=== PATIENT | male | born 1960 | race Caucasian/White ===

== ENCOUNTER → 2016-11-12 11:09 | Outpatient (CLI) | payer MEDICARE ==
[2016-07-12 10:15] VITALS: BMI 33.2
[~2016-11-12 11:09] MED LIST: ACIDOPHILUS LAC1 CAP PO; APAP325 MG PO; ASPIRIN325 MG PO; AUGMENTIN 875-11 TAB PO; B&O SUPP1 SUPP.REC RC; BACLOFEN10 MG PO; BACLOFEN20 M1 PO; BACTROBAN NASAL1 GM TOPICAL; BANOPHEN25 MG PO; BYSTOLIC10 MG PO; COLACE100 MG PO; CRESTOR5 MG PO; DENAVIR1.5 GM TOPICAL; DIFLUCAN100 MG PO; DILAUDID INJ2 MG/ML IV; DULCOLAX10 MG/SUPP RC; DURAGESIC1 PATCH .1 TRANSDERM; FLORASTOR PO; HYDROCODON-ACE1 EAC7 PO; IPRAT-ALBUT 0.5-3 ML UPD; K-TAB10 MEQ PO; LABETALOL HCL5 MG/M1 IV; LEVAQUIN250 MG PO; LIDODERM 5 %1 PATCH TD; LIPITOR20 MG PO; LISINOPRIL5 MG PO; LOVENOX40 MG/0.4 SQ; LOW DOSE ASPIRI81 M1 PO; LYRICA200 MG PO; MAG-OX 400 MG400 MG PO; MILK OF MAGNESI30 ML PO; MIRALAX17 GM PO; NYSTATIN1 PWD TOPICAL; ONDANSETRON4 MG/2 M3 IV; OXYMORPHONE HCL30 MG PO; POTASSIUM20 MEQ/11 PO; PROTONIX40 MG PO; PROZAC10 MG PO; PULMICORT0.5 MG/21 INH; ROCEPHIN 1 GM IN1 GM IM; SENOKOT-S TABLE1 TAB PO; SODIUM CL 0.91000 ML IV; SPIRIVA18 MCG INH; ULTRACET TABLET1 TAB PO; VALIUM10 MG PO; VIAGRA100 MG PO; VITAMIN D5000 UNIT; ZOFRAN4 MG PO
[2016-11-12 11:47] LABS: ALBUMIN 3.6 g/dL (3.4-5.0); ALKALINE PHOSPHATASE 90 U/L (46-116); ALT (SGPT) 56 U/L (10-68); BILIRUBIN - TOTAL 0.31 mg/dL (0.2-1.3); CALC OSMOLALITY 272 mosm/kg (275-300); CALCIUM 8.6 mg/dL (8.5-10.1); CARBON DIOXIDE 26.8 mmol/L (21.0-32.0); CHLORIDE - SERUM 100 mmol/L (98-107); CREATININE - SERUM 0.8 mg/dL (0.6-1.3); GLUCOSE 113 mg/dL (74-106); POTASSIUM - SERUM 4.5 mmol/L (3.5-5.1); PROTEIN - SERUM 7.2 g/dL (6.4-8.2); SODIUM 136 mmol/L (136-145); UREA NITROGEN 13 mg/dL (7-18); eGFR NON AFRICAN AMERICAN > 90 mL/min (90-120)
== END | disposition home or self-care (01) ==
LOC: D.LABREF 11:09
PROVIDERS: Family Medicine
DX: R09.89 Other specified symptoms and signs involving the circulatory and respiratory systems (principal); R05 Cough; R50.9 Fever, unspecified

== ENCOUNTER 2017-07-01 21:53 | Inpatient (IN) | payer MEDICARE ==
[~2017-07-01] VITALS: Ht 188 cm; Wt 131.8 kg
[~2017-07-01 21:53] MED LIST changes: +LIPITOR10 MG PO; -LIPITOR20 MG PO; +PROTONIX20 MG PO; -PROTONIX40 MG PO; -PROZAC10 MG PO; +PROZAC20 MG PO; +VITAMIN D250000 UNIT PO; -VITAMIN D5000 UNIT
[2017-07-01 22:37] LABS: BASOPHILS 0.1 % (0-2); EOSINOPHILS 0.6 % (0-7); HEMATOCRIT 43.9 % (42.0-54.0); HEMOGLOBIN 13.4 g/dL (13.5-17.5); IMMATURE GRANULOCYTES 0.2 % (0-5); LYMPHOCYTES 7.9 % (15-50); MCH 22.7 pg (26.0-34.0); MCHC 30.5 g/dL (31.0-37.0); MCV 74.4 fL (80.0-100.0); MEAN PLATELET VOLUME 9.6 fL (7.4-10.4); MONOCYTES 8.1 % (2-11); NEUTROPHILS 83.1 % (40-80); RDW 17.3 % (11.5-14.5); WBC 8.7 10x3/uL (4.8-10.8)
[2017-07-01 22:41] LABS: PLATELET COUNT 194 10x3/uL (130-400)
[2017-07-01 22:57] LABS: CREATININE - SERUM 0.9 mg/dL (0.6-1.3); eGFR NON AFRICAN AMERICAN > 90 mL/min (90-120)
[2017-07-01 23:15] LABS: ALBUMIN 3.4 g/dL (3.4-5.0); ALKALINE PHOSPHATASE 119 U/L (46-116); ALT (SGPT) 48 U/L (10-68); BILIRUBIN - TOTAL 0.37 mg/dL (0.2-1.3); CARBON DIOXIDE 24.8 mmol/L (21.0-32.0); CHLORIDE - SERUM 99 mmol/L (98-107); POTASSIUM - SERUM 4.6 mmol/L (3.5-5.1); PROTEIN - SERUM 7.5 g/dL (6.4-8.2); SODIUM 133 mmol/L (136-145)
[2017-07-01 23:27] LABS: CALC OSMOLALITY 271 mosm/kg (275-300); CALCIUM 8.7 mg/dL (8.5-10.1); GLUCOSE 169 mg/dL (74-106); UREA NITROGEN 19 mg/dL (7-18)
[2017-07-01 23:33] LABS: APPEARANCE CLEAR (CLEAR); BILIRUBIN NEGATIVE (NEGATIVE); COLOR DK YELLOW (YELLOW); GLUCOSE NEGATIVE (NEGATIVE); KETONE NEGATIVE (NEGATIVE); NITRITE NEGATIVE (NEGATIVE); PROTEIN TRACE mg/dL (NEGATIVE); UROBILINOGEN NORMAL (NORMAL)
[2017-07-01 23:35] LABS: BACTERIA FEW /hpf (NONE SEEN); EPITHELIAL CELLS 0-5 /hpf (0-5); MUCUS <1+ /lpf (NONE SEEN); RED CELLS - URINE NONE SEEN /hpf (0-5); SPERMATOZOA PRESENT /hpf (NONE SEEN); WHITE CELLS - URINE 0-5 /hpf (0-5)
--- NOTE | 2017-07-01 23:56 | NUR ---
REPORT RECEIVED FROM DONNELL FERRELL IN ER
[2017-07-02 00:59] VITALS: BP 111/55; Ht 188 cm; Wt 131.8 kg
[2017-07-02] MEDS ORDERED: CYCLOBENZAPRINE5 MG PO (04:39)
[2017-07-02] MEDS ORDERED: LYRICA200 MG PO (04:40)
[2017-07-02] MEDS ORDERED: REQUIP0.5 MG PO (04:40)
[2017-07-02] MEDS ORDERED: VALIUM5 MG PO (04:41)
[2017-07-02] MEDS ORDERED: IMODIUM2 MG PO (04:43)
[2017-07-02] MEDS ORDERED: MELATONIN 3 MG1 TAB PO (04:44)
--- NOTE | 2017-07-02 04:48 | NUR ---
PT RECEIVED FROM ER VIA STRETCHER @ 00:30 AWAKE, ALERT, ORIENTED, WITH HIS DAUGHTER AND SON-IN-LAW AT BEDSIDE. PTS DAUGHTER IS PETE JACOME, AN VICE PRESIDENT [employer] WHO HAS PREVIOUSLY WORKED HERE ON THIS UNIT. MRS. JACOME EXPRESSED GREAT CONCERN ABOUT AN ORDERED MEDICATION PT RECEIVED IN THE ER BEFORE BEING ADMITTED TO THE FLOOR. MRS. JACOME STATES THAT PTS NURSE IN THE ER, DONNELL, ADMINISTERED PT AN IV PUSH OF CEFTRIAXONE DILUTED WITH LIDOCAINE, CAUSING PT PAIN AND DISCOMFORT TO HIS IV SITE AND ARM, THEN INFILTRATING. DONNELL DID REPORT TO ME THAT HIS IV DID IN FACT INFILTRATE AFTER THE ADMINISTRATION OF ROCEPHIN, HOWEVER SHE DID NOT STATE TO ME THAT SHE ADMINISTERED THE CEFTRIAXONE (ROCEPHIN) IV PUSH. MRS. JACOME STATES SHE ALSO DISCUSSED HER CONCERNS WITH RADU OBRIEN RN, ALSO IN THE ER. I HAVE NOTIFIED CORPORATE SAFETY MANAGER, EL HALL, WHO ALSO STATED TO LET RADU OBRIEN KNOW, IN WHICH I STATED THAT MRS. JACOME HAD ALREADY DONE SO. I PLACED PT ON TELEMETRY AND HAVE CONTINUED TO MONITOR PT CLOSELY SINCE HIS ADMISSION. PT IS CURRENTLY RESTING COMFORTABLY, HOWEVER, PT DOES DEMONSTRATE MODERATE APNEA DURING HIS SLEEP. PT IS EASILY ROUSABLE TO VERBAL STIMULI, AND CURRENTLY DENIES ANY NEEDS. WILL CONTINUE TO MONITOR PT CLOSELY AND FREQUENTLY. BED LOW, CALL LIGHT IN REACH, SIDE RAILS X 2, HOB 35 DEGREES.
--- NOTE | 2017-07-02 05:31 | NUR ---
EL HALL, ARCHIVIST MILITARY HISTORY, DID CHECK THE ER PYXIS AND CONFIRMS THE DILUENT USED FOR THE IV PUSH ROCEPHIN WAS STERILE WATER AND NOT LIDOCAINE.
[2017-07-02 08:00] VITALS: BP 117/73
--- NOTE | 2017-07-02 10:21 | NUR ---
ASSESSMENT COMPLETED.PT IS HAVING PERIODS OF APNEA. 02 AT 4 L/M PER NC.HARD TO WAKE UP THEN GOES RIGHT BACK TO SLEEP. MEDS HELD DUE TO BREATHING AND BP. TELEMERTY SHOWS ST 105. PT IS BED BOUND. WILL MONITOR. NO NEEDS NOTED SR UP WITH CALL LIGHT IN REACH
--- NOTE | 2017-07-02 10:59 | NUR ---
AROUSES TO VERBAL STIMULI BUT GOES BACK TO SLEEP WITH SNORING RESP PT ANSWERS APPROPRIATELY APPEARS TO BE ORIENTED TO SELF AND PLACE O2 ON PER ORDER WILL CONTINUE TO MONITOR
[2017-07-02 12:00] VITALS: BP 144/78
[2017-07-02 16:00] VITALS: BP 107/70
--- NOTE | 2017-07-02 18:59 | NUR ---
LYING QUIETLY. DENIES ANY NEEDS, CALL LIGHT IN REACH
--- NOTE | 2017-07-02 20:18 | NUR ---
PT AWAKE, ALERT, ORIENTED, LYING IN BED RECEIVING A RESP TX AT THIS TIME. PT IS ASKING FOR HIS PRN VALIUM, DENIES ANY OTHER NEEDS. CONTINUE TO MONITOR CLOSELY. BED LOW, CALL LIGHT IN REACH, SIDE RAILS X 2, HOB 30 DEGREES.
[2017-07-02 21:24] VITALS: BP 129/65
[2017-07-03 01:40] VITALS: BP 109/63
--- NOTE | 2017-07-03 03:27 | NUR ---
PT HAS CALLED TWICE ASKING FOR VALIUM R/T INCREASED TREMORS/JERKING IN HIS BLE'S. I HAVE EXPLAINED TO PT THAT HIS VALIUM IS SCHEDULED AND NOT PRN. I HAVE PAGED DR. TRAN FOR FURTHER ORDERS, THESE TREMORS ARE MODERATE TO SEVERE AT TIMES AND PAINFUL. CONTINUE TO MONITOR CLOSELY.
[2017-07-03 04:00] VITALS: BP 152/126
--- NOTE | 2017-07-03 04:31 | NUR ---
DR. TRAN RETURNED CALL IMMEDIATELY AND GAVE A VERBAL ORDER TO CHANGE PTS VALIUM FROM 1MG PO TID TO 5MG PO TID. NEW DOSE ADMINISTERED TO PT IMMEDIATELY. NO OTHER NEEDS. CONTINUE TO MONITOR PT CLOSELY.
[2017-07-03 06:51] LABS: BASOPHILS 0.2 % (0-2); EOSINOPHILS 0 % (0-7); HEMATOCRIT 38.7 % (42.0-54.0); HEMOGLOBIN 11.9 g/dL (13.5-17.5); IMMATURE GRANULOCYTES 0.5 % (0-5); LYMPHOCYTES 14.4 % (15-50); MCH 22.7 pg (26.0-34.0); MCHC 30.7 g/dL (31.0-37.0); MCV 73.7 fL (80.0-100.0); MEAN PLATELET VOLUME 9.2 fL (7.4-10.4); MONOCYTES 7.5 % (2-11); NEUTROPHILS 77.4 % (40-80); PLATELET COUNT 211 10x3/uL (130-400); RBC 5.25 10x6/uL (4.20-6.10); RDW 17.1 % (11.5-14.5)
[2017-07-03 07:02] LABS: CALC OSMOLALITY 273 mosm/kg (275-300); CALCIUM 8.7 mg/dL (8.5-10.1); CARBON DIOXIDE 27.2 mmol/L (21.0-32.0); CHLORIDE - SERUM 98 mmol/L (98-107); CREATININE - SERUM 0.8 mg/dL (0.6-1.3); GLUCOSE 132 mg/dL (74-106); POTASSIUM - SERUM 4.4 mmol/L (3.5-5.1); SODIUM 136 mmol/L (136-145); UREA NITROGEN 12 mg/dL (7-18); eGFR NON AFRICAN AMERICAN > 90 mL/min (90-120)
[2017-07-03 07:19] LABS: WBC 6.1 10x3/uL (4.8-10.8)
--- NOTE | 2017-07-03 07:30 | NUR ---
ASSESSMENT COMPLETED. TELEMERTY SHOWS ST 121. 02 AT 4 L/M PER NC. RIGHT FOREARM IV WITN NS AT KVO. PT IS A PARAPLEGIC.NO COMPLAINTS VOICED. SR UP WITH CALL LIGHT IN REACH. WILL MONITOR
[2017-07-03 08:41] VITALS: BP 151/74
--- NOTE | 2017-07-03 09:56 | NUR ---
RESTING QUIETLY RESP UNLABORED NAD NOTED
[2017-07-03 12:00] VITALS: BP 122/74
[2017-07-03 16:00] VITALS: BP 130/63
[2017-07-03 21:05] VITALS: BP 116/71
[2017-07-04] VITALS (7 sets, daily range): BP systolic 111–147; BP diastolic 68–82
--- NOTE | 2017-07-04 04:51 | NUR ---
PT RESTING QUIETLY, EYES CLOSED. RESP DEEP, EASY. NO DISTRESS NOTED. WILL CONTINUE TO MONITOR.
--- NOTE | 2017-07-04 08:45 | NUR ---
MORNING MEDICATIONS GIVEN. PT SITTING UP IN BED RESTING QUIETLY AND EATING BREAKFAST. PT STATES HE SLEPT WELL AND IS DOING "ALRIGHT" PT C/O R.LEG PAIN REQUESTED AND PROVIDED WITH PRN PAIN MEDICATION. RR NONLABORED WITH NC @4L WILL TRY TO TAPER HIM DOWN OFF OXYGEN HE STATES HE NORMALLY DOESNT REQUIRE IT. PT DENIES ANY CURRENT NEEDS AT THIS TIME. CL IN REACH, BED IN LOWEST, SIDE RAILS X2, WILL CPOC.
--- NOTE | 2017-07-04 11:08 | NUR ---
PT HAS SCANT AMOUNT OF BOWEL MOVEMENT ON HIS LINENS. LINENS CHANGED AND BED BATH GIVEN WITH OLIVA MUHAMMAD. REPOSITIONED PT UP IN BED FOR COMFORT. PT VOICED THANKS AND DENIES ANY FURTHER NEEDS AT THIS TIME. CL IN REACH, BED IN LOWEST, SIDE RAILS X2. WILL CPOC.
[2017-07-04 12:28] LABS: BASOPHILS 0.1 % (0-2); EOSINOPHILS 0 % (0-7); HEMATOCRIT 38.2 % (42.0-54.0); IMMATURE GRANULOCYTES 0.8 % (0-5); LYMPHOCYTES 10.2 % (15-50); MCH 22.6 pg (26.0-34.0); MCHC 31.4 g/dL (31.0-37.0); MCV 71.8 fL (80.0-100.0); MEAN PLATELET VOLUME 9.4 fL (7.4-10.4); MONOCYTES 9.8 % (2-11); NEUTROPHILS 79.1 % (40-80); PLATELET COUNT 244 10x3/uL (130-400); RBC 5.32 10x6/uL (4.20-6.10); RDW 17.5 % (11.5-14.5)
[2017-07-04 12:43] LABS: WBC 10.8 10x3/uL (4.8-10.8)
[2017-07-04 12:48] LABS: CALC OSMOLALITY 282 mosm/kg (275-300); CALCIUM 9.1 mg/dL (8.5-10.1); CARBON DIOXIDE 29.7 mmol/L (21.0-32.0); CHLORIDE - SERUM 102 mmol/L (98-107); CREATININE - SERUM 0.7 mg/dL (0.6-1.3); GLUCOSE 156 mg/dL (74-106); POTASSIUM - SERUM 4.2 mmol/L (3.5-5.1); SODIUM 140 mmol/L (136-145); UREA NITROGEN 14 mg/dL (7-18); eGFR NON AFRICAN AMERICAN > 90 mL/min (90-120)
--- NOTE | 2017-07-04 14:36 | NUR ---
ATTEMPTED TO WEAN PTS OXYGEN FROM 4L TO 3L AND PT IMMEDIATELY DESATTED TO 89% PUT BACK ON 4L AND PT RESTING QUIETLY IN BED ABOUT TO RECIEVE BREATHING TX. EMPTIED URINAL OF 125ML CLEAR YELLOW URINE AND ELEVATED BILAT FEET ON PILLOW TO HELP REDUCE SWELLING. NO FURTHER NEEDS AT THIS TIME. WILL CPOC.
--- NOTE | 2017-07-04 16:48 | NUR ---
TURNED PT ONTO HIS L.SIDE TO RELIEVE SOME PRESSURE. PT VOICED THANKS AND DENIES ANY FURTHER NEEDS AT THIS TIME. CL IN REACH, BED IN LOWEST, SIDE RAILS X2. WILL CPOC.
--- NOTE | 2017-07-04 18:41 | NUR ---
PT RESTING QUIETLY IN BED WITH EYES CLOSED. RR NONLABORED ON 4L. NO NEEDS NOTED AT THIS TIME, WILL PASS REPORT TO NIGHTSHIFT.
--- NOTE | 2017-07-04 20:00 | NUR ---
RESTING IN BED. ALERT/ORIENTED. BREATHING TREATMENT IN PROGRESS. O2 @ 4L/NC, RT WILL BE ATTEMPTING TO WEAN DOWN. ST PER TELEMETRY. PT IS A PARAPLEGIC. PIV TO RFA. SEE ASSESSMENT. CPOC.
[2017-07-05 04:24] VITALS: BP 123/81
--- NOTE | 2017-07-05 04:40 | NUR ---
PT HAS RESTED WITH NO DISTRESS. IV ABT ORDERED. IV SOLUMEDROL ORDERED. USING URINAL. NO CHANGE FROM INITIAL SHIFT ASSESSMENT. CPOC.
--- NOTE | 2017-07-05 07:45 | NUR ---
INTRODUCED MYSELF TO PT PRIMARY RN FOR TODAYS SHIFT. PT RESTING QUIETLY IN BED AND DENIES ANY CURRENT PAIN OR NEEDS. WILL CHECK CHART AND CPOC.
[2017-07-05 08:47] VITALS: BP 116/88
[2017-07-05 09:07] LABS: BASOPHILS 0.1 % (0-2); EOSINOPHILS 0.2 % (0-7); HEMATOCRIT 40.8 % (42.0-54.0); HEMOGLOBIN 12.6 g/dL (13.5-17.5); IMMATURE GRANULOCYTES 1.4 % (0-5); LYMPHOCYTES 15.3 % (15-50); MCH 22.4 pg (26.0-34.0); MCHC 30.9 g/dL (31.0-37.0); MCV 72.5 fL (80.0-100.0); MEAN PLATELET VOLUME 9.7 fL (7.4-10.4); MONOCYTES 8.7 % (2-11); NEUTROPHILS 74.3 % (40-80); PLATELET COUNT 211 10x3/uL (130-400); RBC 5.63 10x6/uL (4.20-6.10); RDW 17.7 % (11.5-14.5); WBC 11.6 10x3/uL (4.8-10.8)
[2017-07-05 09:17] LABS: CALC OSMOLALITY 281 mosm/kg (275-300); CALCIUM 8.8 mg/dL (8.5-10.1); CARBON DIOXIDE 29.5 mmol/L (21.0-32.0); CHLORIDE - SERUM 101 mmol/L (98-107); CHOL - HDL RATIO 2.9 ratio (2.3-4.9); CHOLESTEROL, TOTAL 134 mg/dL (0-200); CREATININE - SERUM 0.8 mg/dL (0.6-1.3); GLUCOSE 142 mg/dL (74-106); HDL CHOLESTEROL 46 mg/dL (32-96); LDL CHOLESTEROL 69 mg/dL (0-100); LDL-HDL RATIO 1.5 ratio (1.5-3.5); POTASSIUM - SERUM 3.8 mmol/L (3.5-5.1); SODIUM 140 mmol/L (136-145); TRIGLYCERIDE 98 mg/dL (30-200); UREA NITROGEN 14 mg/dL (7-18); eGFR NON AFRICAN AMERICAN > 90 mL/min (90-120)
[2017-07-05 09:30] LABS: HEMOGLOBIN A1C 6.7 % (4.8-6.0)
--- NOTE | 2017-07-05 09:45 | NUR ---
PT RESTING QUIETLY IN BED WITH HIS DAUGHTER AT BEDSIDE. RR NONLABORED WITH NC @4L IN PLACE. NO CURRENT NEEDS AT THIS TIME. WILL CPOC.
--- NOTE | 2017-07-05 11:11 | NUR ---
ATTEMPTED TO WEAN PT DOWN ON OXYGEN AND BUMPED HIM DOWN TO 3L NC. PT IMMEDIATELY DROPPED TO 86% BUT THEN SLOWLY INCREASED UP TO 90%. PT FEELS LIKE HE IS BREATHING FINE AND NONLABORED, WILL LEAVE AT 3L FOR NOW AND CONSULT PULMONOLOGY ORDERED.
[2017-07-05 12:03] VITALS: BP 134/79
--- NOTE | 2017-07-05 14:27 | NUR ---
PTS PULSE OX 93% ON THE 3L NC BUMPED HIM DOWN TO 2L. WILL CTM.
[2017-07-05 16:23] VITALS: BP 115/75
--- NOTE | 2017-07-05 18:00 | NUR ---
PT SITTING UP IN BED JUST FINISHED EATING DINNER. RR NONLABORED WITH NC @3L IN PLACE. PT STATES HE IS BREATHING PRETTY GOOD AND DENIES ANY SOB. PT STATES HIS R.LEG IS STILL VERY PAINFUL BUT MAINLY DURING SPASM EPISODES, WILL CONTINUE TO TREAT WITH PRN MEDS AND ORDERS. NO FURTHER NEEDS AT THIS TIME. CL IN REACH, BED IN LOWEST, SIDE RAILS X2.
[2017-07-05 19:00] VITALS: BP 143/68
--- NOTE | 2017-07-05 19:32 | NUR ---
RESUMED CARE OF PT, LYING IN BED WITH EYES CLOSED RESPIRATIONS EVEN AND UNLABORED ON 3LPM VIA NC. [address] ST ON TELEMETRY. RIGHT FOREARM SALINE LOCKED. CALL LIGHT IN REACH, NO NEEDS NOTED AT THIS TIME. SEE NURSE ASSESSMENT. WILL CONTINUE TO MONITOR.
--- NOTE | 2017-07-06 00:11 | NUR ---
RESTING WITH EYES CLOSED, IV TO RIGHT FOREARM INFUSING NS @ KVO. SOME REDNESS NOTED TO IV SITE, IV IS PATENT. WILL MONITOR CLOSELY.
[2017-07-06 00:38] VITALS: BP 122/69
[2017-07-06 04:24] VITALS: BP 107/74
--- NOTE | 2017-07-06 06:00 | NUR ---
NO CHANGES FROM PREVIOUS ASSESSMENT, AM MEDS GIVEN. UNABLE TO WEIGH DUE TO NON WEIGH BED
--- NOTE | 2017-07-06 06:42 | NUR ---
BED BATH AND LINENS CHANGED. IV ASSESSED, REMAINS PATENT
[2017-07-06 08:00] VITALS: BP 122/78
--- NOTE | 2017-07-06 08:09 | NUR ---
ASSESSMENT COMPLETED. LYING QUIETLY. NPO FOR CTA. TELEMERTY SHOWS SR. RIGHT FA SL PATENT. 02 AT 3 L/M . DENIES ANY NEEDS. CALL LIGHT IN REACH WITHSR UP
--- NOTE | 2017-07-06 10:00 | NUR ---
RESTING QUIETLY EYES CLOSED RESP UNLABORED NAD NOTED
[2017-07-06 12:00] VITALS: BP 129/80
--- NOTE | 2017-07-06 12:44 | NUR ---
HOB UP EATING LUNCH. NO NEEDS VOICED. CALL LIGHT IN REACH WITH SR UP
[2017-07-06 17:21] VITALS: BP 110/66
--- NOTE | 2017-07-06 19:20 | NUR ---
PT IN BED RESTING QUIETLY. BREATHING EVEN AND UNLABORED. DENIES ANY PAIN OR NEEDS AT THIS TIME. WILL CTM.
[2017-07-06 21:30] VITALS: BP 100/69
[2017-07-07 02:05] VITALS: BP 107/71
--- NOTE | 2017-07-07 07:26 | NUR ---
INCONTINENT CARE PROVIDED PT TOLERATED WELL NAD NOTED
--- NOTE | 2017-07-07 07:30 | NUR ---
ASSESSMENT COMPLETED. DENIES ANY NEEDS. 02 AT 3 L/M PER NC. TELEMERTY SHOWS SR 8O. RIGHT FA SL. PT IS A PARAPLEGIC. SR UP WITH CALL LIGHT IN REACH. WILL MONITOR
[2017-07-07 08:34] VITALS: BP 114/71
[2017-07-07 09:46] LABS: ALBUMIN 2.9 g/dL (3.4-5.0); ALKALINE PHOSPHATASE 87 U/L (46-116); ALT (SGPT) 38 U/L (10-68); BILIRUBIN - TOTAL 0.32 mg/dL (0.2-1.3); CALC OSMOLALITY 279 mosm/kg (275-300); CALCIUM 8.1 mg/dL (8.5-10.1); CARBON DIOXIDE 28.7 mmol/L (21.0-32.0); CHLORIDE - SERUM 101 mmol/L (98-107); CREATININE - SERUM 0.8 mg/dL (0.6-1.3); GLUCOSE 160 mg/dL (74-106); POTASSIUM - SERUM 3.4 mmol/L (3.5-5.1); PROTEIN - SERUM 6.5 g/dL (6.4-8.2); SODIUM 138 mmol/L (136-145); UREA NITROGEN 14 mg/dL (7-18); eGFR NON AFRICAN AMERICAN > 90 mL/min (90-120)
[2017-07-07 09:52] LABS: BASOPHILS 0.2 % (0-2); EOSINOPHILS 3.1 % (0-7); HEMATOCRIT 40.1 % (42.0-54.0); HEMOGLOBIN 12.6 g/dL (13.5-17.5); IMMATURE GRANULOCYTES 2.5 % (0-5); LYMPHOCYTES 20.5 % (15-50); MCH 22.7 pg (26.0-34.0); MCHC 31.4 g/dL (31.0-37.0); MCV 72.1 fL (80.0-100.0); MEAN PLATELET VOLUME 9.5 fL (7.4-10.4); NEUTROPHILS 65.7 % (40-80); PLATELET COUNT 245 10x3/uL (130-400); RBC 5.56 10x6/uL (4.20-6.10); WBC 10.3 10x3/uL (4.8-10.8)
--- NOTE | 2017-07-07 12:16 | NUR ---
UP ON SIDE OF BED FOR DIET. NO NEEDS VOICED. TELEMERTY SHOWS SB
--- NOTE | 2017-07-07 12:25 | NUR ---
HOB UP FOR DIET. NO NEEDS VOICED. CALL LIGHT IN REACH WITH SR UP. WILL MONITOR
[2017-07-07 12:38] VITALS: BP 106/89
[2017-07-07 16:52] VITALS: BP 135/67
[2017-07-07 20:33] VITALS: BP 111/82
--- NOTE | 2017-07-07 23:08 | NUR ---
PATIENT IS RESTING AND REPORTS REDUCED PAIN. HAD A SEZURE IN HIS LEGS AT 2230.IV IN RIGHT FOREARM HAS SOME BLOOD AROUND THE DRESSING BUT IS PATENT AND FLUSHES EASILY. PATIENT C/O PAIN IN HIS RIGHT LEG. DENIES ANY NEEDS AT THIS TIME. 3L VIA NASAL CANNULA. BED LOW, CALL LIGHT IN REACH.
--- NOTE | 2017-07-08 00:01 | NUR ---
MARKETING INFORMATION COORDINATOR AT BED SIDE TO OBTAIN VITALS, WILL CONT TO MONITOR.
--- NOTE | 2017-07-08 01:28 | NUR ---
SLEEPING COMFORTABLY AT THIS TIME. DENIES ANY PAIN. OXYGEN IS ON 3 L. RIGHT FOREARM IV SL. DENIES ANY NEEDS. BED IN LOW POSITION, CALL LIGHT IN REACH.
--- NOTE | 2017-07-08 03:25 | NUR ---
C/O PAIN IN HIS RIGHT LEG. CANNOT ADMINISTER MEDICATION BECAUSE IT HAS NOT BEEN 6 HOURS YET. REPOSITIONED LEGS WITH PILLOWS. REPORTS PAIN AT A 8 OR 9 OUT OF 10.
[2017-07-08 04:39] VITALS: BP 144/74
[2017-07-08 05:50] LABS: BASOPHILS 0.1 % (0-2); EOSINOPHILS 2.9 % (0-7); HEMATOCRIT 39.7 % (42.0-54.0); IMMATURE GRANULOCYTES 2.2 % (0-5); MCHC 30.2 g/dL (31.0-37.0); MCV 72.7 fL (80.0-100.0); MEAN PLATELET VOLUME 9.1 fL (7.4-10.4); MONOCYTES 9.4 % (2-11); NEUTROPHILS 63.4 % (40-80); PLATELET COUNT 213 10x3/uL (130-400); RBC 5.46 10x6/uL (4.20-6.10); RDW 18.1 % (11.5-14.5); WBC 8.7 10x3/uL (4.8-10.8)
[2017-07-08] MEDS ORDERED: OMNICEF300 MG PO (07:38)
[2017-07-08] MEDS ORDERED: BROVANA15 MCG/2 M INH (07:39)
[2017-07-08] MEDS ORDERED: CYCLOBENZAPRINE10 MG PO (07:40)
[2017-07-08] MEDS ORDERED: PULMICORT0.5 MG/21 UPD (07:42)
[2017-07-08] MEDS ORDERED: MUCINEX DM ER1 EAC1 PO (07:42)
[2017-07-08] MEDS ORDERED: GLUCOPHAGE850 MG PO (07:43)
[2017-07-08 07:45] LABS: ALBUMIN 2.9 g/dL (3.4-5.0); ALKALINE PHOSPHATASE 82 U/L (46-116); ALT (SGPT) 35 U/L (10-68); BILIRUBIN - TOTAL 0.31 mg/dL (0.2-1.3); CALC OSMOLALITY 280 mosm/kg (275-300); CALCIUM 8.3 mg/dL (8.5-10.1); CARBON DIOXIDE 28.7 mmol/L (21.0-32.0); CHLORIDE - SERUM 103 mmol/L (98-107); CREATININE - SERUM 0.8 mg/dL (0.6-1.3); GLUCOSE 119 mg/dL (74-106); POTASSIUM - SERUM 3.9 mmol/L (3.5-5.1); PROTEIN - SERUM 6.5 g/dL (6.4-8.2); SODIUM 141 mmol/L (136-145); UREA NITROGEN 11 mg/dL (7-18); eGFR NON AFRICAN AMERICAN > 90 mL/min (90-120)
[2017-07-08 07:52] VITALS: BP 124/90
--- NOTE | 2017-07-08 08:47 | NUR ---
AM MEDS GIVEN AT THIS TIME. PT IN BED, DENIES ANY NEEDS AT THIS TIME. CALL LIGHT IN REACH, NAD NOTED, WILL CONTINUE PLAN OF CARE.
--- NOTE | 2017-07-08 10:25 | NUR ---
Patient Name: MAGNOLIA BOYKIN Admission Status: ER Accout number: [id number] Admission Date: 07-01-2017 : 1960 Admission Diagnosis:SHORTNESS OF BREATH Attending: QUENTIN TRAN Current LOS: 7 Anticipated DC Date: 07-08-2017 Planned Disposition: Nursing Facility [facility] Primary Insurance: MEDICARE A & B PLANNED EXTERNAL PROVIDER: [facility], [facility] CARE MEDICAID BED Discharge Planning Comments: * Is the patient Alert and Oriented? Yes 0 * How many steps to enter\exit or inside your home? NONE 0 * PCP DR. TRAN 0 * Pharmacy [facility] [place] 0 * Preadmission Environment Residential [facility] 0 * Facility Name [facility] 0 * ADLs Partial Dependent 0 * Partial ADLs (Assistance needed) Ambulation Bathing Dressing Medication Management Transfers 0 * Equipment Other 0 * Other Equipment ALL MEDICAL EQUIPMENT PROVIDED BY FACILITY 0 * List name and contact numbers for known caregivers / representatives who currently or will assist patient after discharge: PETE JACOME, DTR, 0 * Community resources currently utilized None 0 * Please name any agencies selected above. NONE 0 * Additional services required to return to the preadmission environment? No 0 * Can the patient safely return to the preadmission environment? Yes 0 * Has this patient been hospitalized within the prior 30 days at any hospital? No 0 CM RECEIVED DISCHARGE ORDER, MET WITH PT IN ROOM TO DISCUSS DISCHARGE PLANNING AND NEEDS. PT REPORTS LIVING AT [facility] FOR OVER 4 YEARS. PT REPORTS THAT HIS DAUGHTER PLANS TO MOVE HIM TO ANOTHER FACILITY IN THE FUTURE, BUT FOR NOW, HE WILL BE RETURNING TO [facility] FOR CONTINUED FPC CARE. PT HAS A WHEELCHAIR AND HAS TO HAVE ASSISTANCE GETTING INTO IT AT THE [facility]. PT DENIES DISCHARGE NEEDS, REPORTS HE NORMALLY TRANSPORTS IN AN AMBULANCE TO DISCHARGE HOME. IMPORTANT MESSAGE FROM MEDICARE PROVIDED AND EXPLAINED. PT REPORTS THAT HIS DAUGHTER IS AWARE THAT HE IS LEAVING TODAY HE HAS CALLED HER THIS MORNING AFTER SPEAKING TO THE DOCTOR. CM CALLED [facility], , SPOKE TO JOSEPH WHO REPORTS THEY WILL ACCEPT PT TODAY FOR [facility] CARE RETURN, [facility] WILL CALL [facility] FOR [facility]ATION [employer]. CM FAXED DISCHARGE AND HOSPITAL INFORMATION TO [facility] AT [phone]. NURSE REPORT TO BE CALLED TO KAMRAN BYRD NURSE AT [phone]. [employer]: Joshua Martínez
--- NOTE | 2017-07-08 11:50 | NUR ---
CALLED PETE PT'S DAUGHTER AND ANSWERED HER CONCERNS REGARDING PT BEING D/C. EXPLAINED TO PETE THAT PT IS NOW ON 3L AND O2 IS STAYING 90-92.
[2017-07-08 11:59] VITALS: BP 103/69
--- NOTE | 2017-07-08 12:00 | NUR ---
PROVIDED VERBAL AND WRITTEN DISCHAGE TEACHING TO PT, PT VERBALIZED UNDERSTANDING REGARDING TEACHING. 1215- CALLED [facility] AND GAVE REPORT TO CARSON HEMPHILL WHO WILL BE TAKING CARE OF PT. 1300- IRON ERECTOR HERE TO LICENSE AND PERMIT SPECIALIST PT. PT LEFT UNIT VIA STRETCHER, NAD NOTED.
--- NOTE | 2017-07-08 12:34 | NUR ---
ADMINISTERED NORCO FOR PAIN LEVEL OF 8/10. D/C RT FA IV TIP INTACT. PT DENIES ANY OTHER NEEDS AT THIS TIME. CALL LIGHT IN REACH, NAD NOTED, WILL CONTINUE TO MONITOR.
== END 2017-07-08 13:23 | DRG 193 ==
LOC: D.ER 21:53 → D.M2 23:11
PROVIDERS: Emergency Medicine; ADMIT Family Medicine
DX: J18.9 Pneumonia, unspecified organism (principal); G82.50 Quadriplegia, unspecified; J96.01 Acute respiratory failure with hypoxia; J44.0 Chronic obstructive pulmonary disease with (acute) lower respiratory infection; J44.1 Chronic obstructive pulmonary disease with (acute) exacerbation; J98.11 Atelectasis; I10 Essential (primary) hypertension; G89.29 Other chronic pain; E78.5 Hyperlipidemia, unspecified; E11.40 Type 2 diabetes mellitus with diabetic neuropathy, unspecified; F41.8 Other specified anxiety disorders; K21.9 Gastro-esophageal reflux disease without esophagitis; I69.993 Ataxia following unspecified cerebrovascular disease; G47.33 Obstructive sleep apnea (adult) (pediatric); Z74.09 Other reduced mobility; J30.9 Allergic rhinitis, unspecified; G25.81 Restless legs syndrome; K59.09 Other constipation; N32.89 Other specified disorders of bladder; Z87.891 Personal history of nicotine dependence

== ENCOUNTER 2018-05-01 13:18 | Inpatient (IN) | payer MEDICARE ==
[~2018-05-01] VITALS: Ht 188 cm; Wt 59.3 kg
[2018-05-01] VITALS (15 sets, daily range): BP systolic 71–150; BP diastolic 38–92; BMI 36.6
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
[~2018-05-01 13:18] MED LIST changes: +BROVANA15 MCG/2 M INH; +CYCLOBENZAPRINE10 MG PO; +CYCLOBENZAPRINE5 MG PO; +GLUCOPHAGE850 MG PO; +IMODIUM2 MG PO; +MELATONIN 3 MG1 TAB PO; +MUCINEX DM ER1 EAC1 PO; +OMNICEF300 MG PO; +PULMICORT0.5 MG/21 UPD; +REQUIP0.5 MG PO; +VALIUM5 MG PO
[2018-05-01 13:46] LABS: BASOPHILS 0.3 % (0-2); EOSINOPHILS 1.1 % (0-7); HEMATOCRIT 37.2 % (42.0-54.0); HEMOGLOBIN 11.4 g/dL (13.5-17.5); IMMATURE GRANULOCYTES 0.3 % (0-5); MCH 21.4 pg (26.0-34.0); MCHC 30.6 g/dL (31.0-37.0); MCV 69.8 fL (80.0-100.0); MEAN PLATELET VOLUME 8.9 fL (7.4-10.4); MONOCYTES 10.4 % (2-11); NEUTROPHILS 70.9 % (40-80); PLATELET COUNT 204 10x3/uL (130-400); RBC 5.33 10x6/uL (4.20-6.10); RDW 19.1 % (11.5-14.5)
[2018-05-01 13:59] LABS: ALKALINE PHOSPHATASE 77 U/L (46-116); ALT (SGPT) 46 U/L (10-68); BILIRUBIN - TOTAL 0.38 mg/dL (0.2-1.3); CALC OSMOLALITY 264 mosm/kg (275-300); CALCIUM 7.9 mg/dL (8.5-10.1); CARBON DIOXIDE 31.8 mmol/L (21.0-32.0); CHLORIDE - SERUM 97 mmol/L (98-107); GLUCOSE 114 mg/dL (74-106); POTASSIUM - SERUM 4.6 mmol/L (3.5-5.1); PROTEIN - SERUM 6.9 g/dL (6.4-8.2); SODIUM 131 mmol/L (136-145); UREA NITROGEN 16 mg/dL (7-18); eGFR NON AFRICAN AMERICAN 82 mL/min (90-120)
[2018-05-01 14:07] LABS: PRO BNP 87 pg/mL (0-125)
[2018-05-02] VITALS (24 sets, daily range): BP systolic 91–130; BP diastolic 59–79
[2018-05-02 07:49] LABS: BASOPHILS 0.3 % (0-2); EOSINOPHILS 2.2 % (0-7); HEMATOCRIT 37.1 % (42.0-54.0); HEMOGLOBIN 11.3 g/dL (13.5-17.5); IMMATURE GRANULOCYTES 0.3 % (0-5); LYMPHOCYTES 18.2 % (15-50); MCH 21.2 pg (26.0-34.0); MCHC 30.5 g/dL (31.0-37.0); MCV 69.7 fL (80.0-100.0); MEAN PLATELET VOLUME 8.6 fL (7.4-10.4); MONOCYTES 8.7 % (2-11); NEUTROPHILS 70.3 % (40-80); PLATELET COUNT 187 10x3/uL (130-400); RBC 5.32 10x6/uL (4.20-6.10); RDW 18.9 % (11.5-14.5); WBC 6.5 10x3/uL (4.8-10.8)
[2018-05-02 08:09] LABS: CALC OSMOLALITY 269 mosm/kg (275-300); CALCIUM 7.8 mg/dL (8.5-10.1); CHLORIDE - SERUM 98 mmol/L (98-107); CREATININE - SERUM 0.8 mg/dL (0.6-1.3); GLUCOSE 101 mg/dL (74-106); POTASSIUM - SERUM 4.5 mmol/L (3.5-5.1); SODIUM 135 mmol/L (136-145); UREA NITROGEN 12 mg/dL (7-18); eGFR NON AFRICAN AMERICAN > 90 mL/min (90-120)
[2018-05-03] VITALS (12 sets, daily range): BP systolic 108–162; BP diastolic 64–109; Ht 188 cm; Wt 59.3 kg
[2018-05-03 03:48] LABS: BASOPHILS 0.2 % (0-2); EOSINOPHILS 0 % (0-7); HEMATOCRIT 38.2 % (42.0-54.0); IMMATURE GRANULOCYTES 0.5 % (0-5); LYMPHOCYTES 9.6 % (15-50); MCH 21.5 pg (26.0-34.0); MCHC 31.4 g/dL (31.0-37.0); MCV 68.6 fL (80.0-100.0); MEAN PLATELET VOLUME 9.2 fL (7.4-10.4); NEUTROPHILS 87.7 % (40-80); RBC 5.57 10x6/uL (4.20-6.10); RDW 18.5 % (11.5-14.5); WBC 6.4 10x3/uL (4.8-10.8)
[2018-05-03 03:50] LABS: PLATELET COUNT 247 10x3/uL (130-400)
[2018-05-03 04:02] LABS: CALC OSMOLALITY 264 mosm/kg (275-300); CALCIUM 8.3 mg/dL (8.5-10.1); CARBON DIOXIDE 29.4 mmol/L (21.0-32.0); CHLORIDE - SERUM 95 mmol/L (98-107); CREATININE - SERUM 0.8 mg/dL (0.6-1.3); MAGNESIUM - SERUM 1.8 mg/dL (1.8-2.4); POTASSIUM - SERUM 4.8 mmol/L (3.5-5.1); SODIUM 130 mmol/L (136-145); UREA NITROGEN 10 mg/dL (7-18); eGFR NON AFRICAN AMERICAN > 90 mL/min (90-120)
[2018-05-03 04:11] LABS: GLUCOSE 185 mg/dL (74-106)
[2018-05-04 05:13] VITALS: BP 119/78
[2018-05-04 05:34] LABS: BASOPHILS 0.1 % (0-2); EOSINOPHILS 0 % (0-7); HEMATOCRIT 36.1 % (42.0-54.0); HEMOGLOBIN 11.7 g/dL (13.5-17.5); IMMATURE GRANULOCYTES 1.4 % (0-5); LYMPHOCYTES 8.4 % (15-50); MCH 21.6 pg (26.0-34.0); MCHC 32.4 g/dL (31.0-37.0); MEAN PLATELET VOLUME 8.9 fL (7.4-10.4); MONOCYTES 5.7 % (2-11); NEUTROPHILS 84.4 % (40-80); PLATELET COUNT 285 10x3/uL (130-400); RBC 5.42 10x6/uL (4.20-6.10); RDW 18.7 % (11.5-14.5)
[2018-05-04 05:43] LABS: MCV 66.6 fL (80.0-100.0); WBC 12.2 10x3/uL (4.8-10.8)
[2018-05-04 05:55] LABS: ANION GAP 16.1 mmol/L (8-16); CALCIUM 8.5 mg/dL (8.5-10.1); CARBON DIOXIDE 22.1 mmol/L (21.0-32.0); MAGNESIUM - SERUM 1.6 mg/dL (1.8-2.4); POTASSIUM - SERUM 4.2 mmol/L (3.5-5.1)
[2018-05-04 06:05] LABS: CREATININE - SERUM 1.1 mg/dL (0.6-1.3)
[2018-05-04 06:15] LABS: PHOSPHOROUS 2.3 mg/dL (2.5-4.9)
[2018-05-04 08:23] VITALS: BP 136/77
[2018-05-04 11:28] VITALS: BP 130/68
[2018-05-04 15:54] VITALS: BP 133/67
[2018-05-04 21:31] VITALS: BP 116/69
[2018-05-05 05:13] VITALS: BP 124/64
[2018-05-05 05:44] LABS: BASOPHILS 0.2 % (0-2); EOSINOPHILS 0 % (0-7); HEMATOCRIT 36.5 % (42.0-54.0); HEMOGLOBIN 11.8 g/dL (13.5-17.5); IMMATURE GRANULOCYTES 3.6 % (0-5); LYMPHOCYTES 10.1 % (15-50); MCH 21.4 pg (26.0-34.0); MCHC 32.3 g/dL (31.0-37.0); MCV 66.1 fL (80.0-100.0); MONOCYTES 7.3 % (2-11); NEUTROPHILS 78.8 % (40-80); PLATELET COUNT 273 10x3/uL (130-400); RBC 5.52 10x6/uL (4.20-6.10); RDW 18.7 % (11.5-14.5); WBC 12.9 10x3/uL (4.8-10.8)
[2018-05-05 06:00] LABS: CALC OSMOLALITY 267 mosm/kg (275-300); CALCIUM 8.3 mg/dL (8.5-10.1); CARBON DIOXIDE 27.1 mmol/L (21.0-32.0); CHLORIDE - SERUM 96 mmol/L (98-107); GLUCOSE 167 mg/dL (74-106); PHOSPHOROUS 2.6 mg/dL (2.5-4.9); POTASSIUM - SERUM 4.8 mmol/L (3.5-5.1); SODIUM 132 mmol/L (136-145); UREA NITROGEN 11 mg/dL (7-18)
[2018-05-05 06:13] LABS: CREATININE - SERUM 0.8 mg/dL (0.6-1.3); eGFR NON AFRICAN AMERICAN > 90 mL/min (90-120)
[2018-05-05 08:31] VITALS: BP 130/85
[2018-05-05 13:20] VITALS: BP 129/78
[2018-05-05 16:24] VITALS: BP 131/83
[2018-05-05 20:12] VITALS: BP 110/76
[2018-05-06 05:21] VITALS: BP 139/82
[2018-05-06 05:26] LABS: BASOPHILS 0.2 % (0-2); EOSINOPHILS 0 % (0-7); HEMATOCRIT 37.1 % (42.0-54.0); IMMATURE GRANULOCYTES 5.1 % (0-5); LYMPHOCYTES 8.8 % (15-50); MCH 21.4 pg (26.0-34.0); MCHC 32.3 g/dL (31.0-37.0); MCV 66.1 fL (80.0-100.0); MONOCYTES 8.9 % (2-11); PLATELET COUNT 294 10x3/uL (130-400); RBC 5.61 10x6/uL (4.20-6.10); RDW 19.1 % (11.5-14.5); WBC 15.7 10x3/uL (4.8-10.8)
[2018-05-06 05:49] LABS: CALC OSMOLALITY 264 mosm/kg (275-300); CALCIUM 8.3 mg/dL (8.5-10.1); CHLORIDE - SERUM 95 mmol/L (98-107); CREATININE - SERUM 0.8 mg/dL (0.6-1.3); GLUCOSE 153 mg/dL (74-106); POTASSIUM - SERUM 4.5 mmol/L (3.5-5.1); SODIUM 130 mmol/L (136-145); eGFR NON AFRICAN AMERICAN > 90 mL/min (90-120)
[2018-05-06 06:08] LABS: UREA NITROGEN 15 mg/dL (7-18)
[2018-05-06 07:49] VITALS: BP 157/88
[2018-05-06 10:42] VITALS: BP 127/73
[2018-05-06 15:42] VITALS: BP 128/65
[2018-05-06 20:00] VITALS: BP 165/75
[2018-05-06 23:59] VITALS: BP 144/73
[2018-05-07 04:00] VITALS: BP 131/87
[2018-05-07 06:27] LABS: BASOPHILS 0.2 % (0-2); EOSINOPHILS 0.1 % (0-7); HEMATOCRIT 39.8 % (42.0-54.0); HEMOGLOBIN 12.9 g/dL (13.5-17.5); IMMATURE GRANULOCYTES 4.6 % (0-5); LYMPHOCYTES 10.5 % (15-50); MCH 21.5 pg (26.0-34.0); MCHC 32.4 g/dL (31.0-37.0); MCV 66.3 fL (80.0-100.0); MEAN PLATELET VOLUME 9.4 fL (7.4-10.4); MONOCYTES 10.6 % (2-11); PLATELET COUNT 323 10x3/uL (130-400); RDW 19.4 % (11.5-14.5); WBC 18.3 10x3/uL (4.8-10.8)
[2018-05-07 06:47] LABS: CALC OSMOLALITY 265 mosm/kg (275-300); CARBON DIOXIDE 25.1 mmol/L (21.0-32.0); CHLORIDE - SERUM 94 mmol/L (98-107); CREATININE - SERUM 0.8 mg/dL (0.6-1.3); GLUCOSE 152 mg/dL (74-106); POTASSIUM - SERUM 4.7 mmol/L (3.5-5.1); SODIUM 131 mmol/L (136-145); UREA NITROGEN 13 mg/dL (7-18); eGFR NON AFRICAN AMERICAN > 90 mL/min (90-120)
[2018-05-07 08:24] VITALS: BP 135/81
[2018-05-07 13:46] VITALS: BP 139/74
[2018-05-07 17:03] VITALS: BP 116/64
[2018-05-07 20:00] VITALS: BP 123/84
[2018-05-08 04:00] VITALS: BP 154/92
[2018-05-08 06:50] LABS: BASOPHILS 0.2 % (0-2); EOSINOPHILS 0.5 % (0-7); HEMATOCRIT 39.4 % (42.0-54.0); HEMOGLOBIN 12.9 g/dL (13.5-17.5); IMMATURE GRANULOCYTES 4.5 % (0-5); LYMPHOCYTES 13.2 % (15-50); MCH 21.5 pg (26.0-34.0); MCHC 32.7 g/dL (31.0-37.0); MCV 65.8 fL (80.0-100.0); MEAN PLATELET VOLUME 8.9 fL (7.4-10.4); NEUTROPHILS 72.6 % (40-80); PLATELET COUNT 294 10x3/uL (130-400); RBC 5.99 10x6/uL (4.20-6.10); RDW 19.2 % (11.5-14.5); WBC 19.7 10x3/uL (4.8-10.8)
[2018-05-08 08:05] VITALS: BP 127/78
[2018-05-08 11:37] VITALS: BP 108/71
[2018-05-08 16:48] VITALS: BP 135/86
[2018-05-08 20:00] VITALS: BP 136/74
[2018-05-09] VITALS: BP 122/77
[2018-05-09 05:54] LABS: HEMATOCRIT 40.5 % (42.0-54.0); MCH 21.5 pg (26.0-34.0); MCHC 32.1 g/dL (31.0-37.0); MCV 66.9 fL (80.0-100.0); MEAN PLATELET VOLUME 8.8 fL (7.4-10.4); PLATELET COUNT 271 10x3/uL (130-400); RBC 6.05 10x6/uL (4.20-6.10); RDW 19.2 % (11.5-14.5); WBC 20.3 10x3/uL (4.8-10.8)
[2018-05-09 07:25] LABS: EOSINOPHILS 1 % (0-7); LYMPHOCYTES 19 % (15-50); MONOCYTES 3 % (2-11); NEUTROPHILS 77 % (40-80); PLATELET ESTIMATE NORMAL
[2018-05-09 08:28] VITALS: BP 115/82
[2018-05-09 08:48] LABS: ALBUMIN 3.2 g/dL (3.4-5.0); ALKALINE PHOSPHATASE 72 U/L (46-116); ALT (SGPT) 35 U/L (10-68); CALC OSMOLALITY 262 mosm/kg (275-300); CALCIUM 8.1 mg/dL (8.5-10.1); CARBON DIOXIDE 28.8 mmol/L (21.0-32.0); CHLORIDE - SERUM 94 mmol/L (98-107); CREATININE - SERUM 0.7 mg/dL (0.6-1.3); POTASSIUM - SERUM 4.1 mmol/L (3.5-5.1); SODIUM 131 mmol/L (136-145); UREA NITROGEN 13 mg/dL (7-18); eGFR NON AFRICAN AMERICAN > 90 mL/min (90-120)
[2018-05-09 08:49] LABS: GLUCOSE 104 mg/dL (74-106)
[2018-05-09 11:31] VITALS: BP 117/71
[2018-05-09 16:29] VITALS: BP 121/74
[2018-05-09 21:07] VITALS: BP 124/73
[2018-05-10 05:09] VITALS: BP 128/79
[2018-05-10 05:55] LABS: BASOPHILS 0.1 % (0-2); EOSINOPHILS 0.2 % (0-7); HEMATOCRIT 38.2 % (42.0-54.0); HEMOGLOBIN 12.3 g/dL (13.5-17.5); IMMATURE GRANULOCYTES 2.1 % (0-5); LYMPHOCYTES 9.2 % (15-50); MCH 21.4 pg (26.0-34.0); MCHC 32.2 g/dL (31.0-37.0); MCV 66.4 fL (80.0-100.0); MEAN PLATELET VOLUME 9.2 fL (7.4-10.4); MONOCYTES 5.2 % (2-11); NEUTROPHILS 83.2 % (40-80); PLATELET COUNT 294 10x3/uL (130-400); RBC 5.75 10x6/uL (4.20-6.10); RDW 19.1 % (11.5-14.5); WBC 19.9 10x3/uL (4.8-10.8)
[2018-05-10 08:29] VITALS: BP 125/89
[2018-05-10 12:04] VITALS: BP 118/72
[2018-05-10 16:13] VITALS: BP 143/68
[2018-05-10 16:24] VITALS: BP 143/68
[2018-05-10 21:01] VITALS: BP 103/68
[2018-05-11 04:57] VITALS: BP 124/74
[2018-05-11 06:25] LABS: BASOPHILS 0.1 % (0-2); EOSINOPHILS 0.4 % (0-7); HEMOGLOBIN 12.3 g/dL (13.5-17.5); LYMPHOCYTES 10.9 % (15-50); MCH 21.6 pg (26.0-34.0); MCHC 32.4 g/dL (31.0-37.0); MCV 66.8 fL (80.0-100.0); MONOCYTES 6.6 % (2-11); PLATELET COUNT 262 10x3/uL (130-400); RBC 5.69 10x6/uL (4.20-6.10); WBC 18.9 10x3/uL (4.8-10.8)
[2018-05-11 06:32] LABS: CALC OSMOLALITY 260 mosm/kg (275-300); CALCIUM 8.1 mg/dL (8.5-10.1); CARBON DIOXIDE 26.6 mmol/L (21.0-32.0); CHLORIDE - SERUM 93 mmol/L (98-107); CREATININE - SERUM 0.7 mg/dL (0.6-1.3); GLUCOSE 109 mg/dL (74-106); POTASSIUM - SERUM 4.2 mmol/L (3.5-5.1); SODIUM 129 mmol/L (136-145); UREA NITROGEN 14 mg/dL (7-18); eGFR NON AFRICAN AMERICAN > 90 mL/min (90-120)
[2018-05-11 08:05] VITALS: BP 136/83
[2018-05-11] MEDS ORDERED: MAXIPIME 1 GM/D51 G1 IV (09:02)
[2018-05-11] MEDS ORDERED: VALIUM5 MG PO (09:04)
[2018-05-11] MEDS ORDERED: GLUCOPHAGE500 MG PO (09:05)
[2018-05-11] MEDS ORDERED: REQUIP1 MG PO (09:06)
== END 2018-05-11 11:22 | DRG 193 ==
LOC: D.ER 13:18 → D.MS 14:40 → D.EDHOLD 14:40 → D.ICU 17:28 → D.MS 05-03 15:15
PROVIDERS: Family Medicine; Internal Medicine Pulmonary Disease
PROC: 05HC33Z Insertion of Infusion Device into Left Basilic Vein, Percutaneous Approach (ICD-10-PCS; principal; 2018-05-10)
PROC: B54NZZA Ultrasonography of Left Upper Extremity Veins, Guidance (ICD-10-PCS; 2018-05-10)
DX: J18.9 Pneumonia, unspecified organism (principal); J96.21 Acute and chronic respiratory failure with hypoxia; J96.22 Acute and chronic respiratory failure with hypercapnia; G82.50 Quadriplegia, unspecified; J44.0 Chronic obstructive pulmonary disease with (acute) lower respiratory infection; J44.1 Chronic obstructive pulmonary disease with (acute) exacerbation; J98.11 Atelectasis; Z74.01 Bed confinement status; E55.9 Vitamin D deficiency, unspecified; K21.9 Gastro-esophageal reflux disease without esophagitis; E78.5 Hyperlipidemia, unspecified; G89.29 Other chronic pain; E83.39 Other disorders of phosphorus metabolism; E83.42 Hypomagnesemia; D64.9 Anemia, unspecified; G47.00 Insomnia, unspecified; R19.7 Diarrhea, unspecified; I69.344 Monoplegia of lower limb following cerebral infarction affecting left non-dominant side; N32.89 Other specified disorders of bladder; G47.33 Obstructive sleep apnea (adult) (pediatric); E09.42 Drug or chemical induced diabetes mellitus with neurological complications with diabetic polyneuropathy; F41.8 Other specified anxiety disorders; I69.393 Ataxia following cerebral infarction; Z87.891 Personal history of nicotine dependence

== ENCOUNTER 2018-10-22 07:23 | Inpatient (IN) | payer MEDICARE ==
[2018-10-22] VITALS (12 sets, daily range): BP systolic 94–136; BP diastolic 60–93; BMI 38.1
[~2018-10-22] VITALS: Ht 188 cm; Wt 131.1 kg
[~2018-10-22 07:23] MED LIST changes: +GLUCOPHAGE500 MG PO; +MAXIPIME 1 GM/D51 G1 IV; +REQUIP1 MG PO
[2018-10-22 07:53] LABS: BASOPHILS 0.3 % (0-2); EOSINOPHILS 0.3 % (0-7); HEMOGLOBIN 10.3 g/dL (13.5-17.5); IMMATURE GRANULOCYTES 0.2 % (0-5); LYMPHOCYTES 6.6 % (15-50); MCHC 28.6 g/dL (31.0-37.0); MCV 64.2 fL (80.0-100.0); MEAN PLATELET VOLUME 8.7 fL (7.4-10.4); MONOCYTES 6.7 % (2-11); NEUTROPHILS 85.9 % (40-80); RBC 5.61 10x6/uL (4.20-6.10); WBC 11.6 10x3/uL (4.8-10.8)
[2018-10-22 07:57] LABS: MCH 18.4 pg (26.0-34.0); PLATELET COUNT 192 10x3/uL (130-400)
[2018-10-22 08:00] LABS: INR 1.16 (0.85-1.17); PROTIME 14.3 SECONDS (11.6-15.0)
[2018-10-22 08:01] LABS: D-DIMER-QUANTITATIVE 0.92 ug/mLFEU (0.20-0.54)
[2018-10-22 08:15] LABS: ALKALINE PHOSPHATASE 97 U/L (46-116); ALT (SGPT) 44 U/L (10-68); BILIRUBIN - TOTAL 0.57 mg/dL (0.2-1.3); CALC OSMOLALITY 265 mosm/kg (275-300); CALCIUM 7.7 mg/dL (8.5-10.1); CARBON DIOXIDE 30.2 mmol/L (21.0-32.0); CHLORIDE - SERUM 96 mmol/L (98-107); CREATININE - SERUM 0.8 mg/dL (0.6-1.3); GLUCOSE 103 mg/dL (74-106); POTASSIUM - SERUM 4.4 mmol/L (3.5-5.1); PROTEIN - SERUM 6.4 g/dL (6.4-8.2); SODIUM 133 mmol/L (136-145); UREA NITROGEN 12 mg/dL (7-18); eGFR NON AFRICAN AMERICAN > 90 mL/min (90-120)
[2018-10-22] MEDS ORDERED: SPIRIVA18 MCG INH (08:18)
[2018-10-22] MEDS ORDERED: VITAMIN D250000 UNIT (08:20)
[2018-10-22] MEDS ORDERED: FLOMAX0.4 MG PO (08:21)
[2018-10-22] MEDS ORDERED: PULMICORT0.5 MG/21 INH (08:22)
[2018-10-22] MEDS ORDERED: FUROSEMIDE20 MG PO (08:23)
[2018-10-22] MEDS ORDERED: ACIDOPHILUS-PE1 EACH PO (08:25)
[2018-10-22 08:29] LABS: CKMB 1.4 U/L (0.0-3.6); CREATINE KINASE 121 UL (21-232); PRO BNP 50 pg/mL (0-125)
[2018-10-22 08:31] LABS: TROPONIN-I < 0.017 ng/mL (0.000-0.060)
[2018-10-22] MEDS ORDERED: VALIUM5 MG PO (08:31)
[2018-10-22] MEDS ORDERED: PENICILLIN VK250 MG PO (08:34)
[2018-10-22] MEDS ORDERED: PERCOCET 10-321 EAC1 PO (08:36)
--- NOTE | 2018-10-22 09:27 | NUR ---
PT UNABLE TO GIVE URINE SAMPLE AT THIS TIME.
--- NOTE | 2018-10-22 09:29 | NUR ---
ALL DOCUMENTATION DONE IN THIS CHART WAS DONE BY KRISTOPHER HAYES.
--- NOTE | 2018-10-22 12:12 | NUR ---
ADMISSION ASSESSMENT HX AND MED REC COMPLETE PER FLOW SHEET REFER FOR FINDINGS. DR NASCIMENTO AT [facility] GIVEN UPDATE. DR WOOD AT BEDSIDE GIVEN UDPATE. NEW ORDERS RECEIVED
[2018-10-22 12:48] LABS: APPEARANCE CLEAR (CLEAR); BILIRUBIN NEGATIVE (NEGATIVE); COLOR YELLOW (YELLOW); GLUCOSE NEGATIVE (NEGATIVE); KETONE NEGATIVE (NEGATIVE); NITRITE NEGATIVE (NEGATIVE); PROTEIN NEGATIVE (NEGATIVE); SPECIFIC GRAVITY 1.015 (1.005-1.020); UROBILINOGEN NORMAL (NORMAL)
[2018-10-22 12:53] LABS: % SATURATION 4 % (15-55); IRON 17 ug/dl (35-150); TOTAL IRON BIND CAPACITY 359 ug/dl (260-445); UNSAT IRON BIND CAPACITY 342 ug/dl (150-375)
--- NOTE | 2018-10-22 14:49 | NUR ---
SWALLOW EVAL ADM. REG DIET. SANDWICH TRAY GIVEN.
--- NOTE | 2018-10-22 15:03 | MORECARE ---
CASE MANAGEMENT DISCHARGE SUMMARY PATIENT: MAGNOLIA BOYKIN II UNIT: [id number] ADM DATE: 10/22/18 AGE: 58 : 62 SEX: M ROOM/BED: D.2315 AUTHOR: AUSTYN IBRAHIM PHYSICIAN: REFERRING PHYSICIAN: PRIMO NASCIMENTO MD DATE OF SERVICE: 10/22/18 Discharge Plan Patient Name: MAGNOLIA BOYKIN [facility] [facility] 1960 Planned Disposition: Home Anticipated Discharge Date: 10/25/18 Discharge Date: Expected LOS: 3 Initial Reviewer: [email or web address] Initial Review Date: 10/22/2018 Generated: 10/22/18 4:03 pm Patient Name: MAGNOLIA BOYKIN Page [id number] at 1503 All edits/amendments must be made on the electronic document DICTATION DATE: 10/22/18 1502 TUBE COREMAKER: ROYER 10/22/18 1502 RPT#: [id number] DC DATE: STATUS: ADM IN [facility] [address] [place] [address] END OF REPORT
--- NOTE | 2018-10-22 15:13 | MORECARE ---
CASE MANAGEMENT DISCHARGE SUMMARY PATIENT: MAGNOLIA BOYKIN II UNIT: [id number] ADM DATE: 10/22/18 AGE: 58 : 62 SEX: M ROOM/BED: D.2315 AUTHOR: AUSTYN IBRAHIM PHYSICIAN: REFERRING PHYSICIAN: PRIMO NASCIMENTO MD DATE OF SERVICE: 10/22/18 Discharge Plan Patient Name: MAGNOLIA BOYKIN [facility] [facility] 1960 Planned Disposition: Home Anticipated Discharge Date: 10/25/18 Discharge Date: Expected LOS: 3 Initial Reviewer: [email or web address] Initial Review Date: 10/22/2018 Generated: 10/22/18 4:13 pm DCPIA - Discharge Planning Initial Assessment Updated by [email or web address]: Kristy Hendrickson on 10/22/18 3:06 pm * Is the patient Alert and Oriented? Yes * How many steps to enter\exit or inside your home? None * PCP Dr. Morales - retirement * Pharmacy [facility] pharmacy - retirement pharmacy * Preadmission Environment [facility] * Facility Name [facility] * ADLs Total Dependent * List name and contact numbers for known caregivers / representatives who currently or will assist patient after discharge: Abeba Marquez - daughter - [phone] Jean Paul Dee - son in law - [phone] * Verbal permission to speak to the caregivers and representatives has been obtained from the patient. N/A * Additional services required to return to the preadmission environment? No * Can the patient safely return to the preadmission environment? Yes * Has this patient been hospitalized within the prior 30 days at any hospital? No Last DP export: 10/22/18 2:03 pm Patient Name: MAGNOLIA BOYKIN Page 64061 at 1513 All edits/amendments must be made on the electronic document DICTATION DATE: 10/22/181512 ANIMAL ATTENDANTS AND TRAINERS: ROYER 10/22/181512 RPT#: [id number] DC DATE: STATUS: ADM IN [facility] [address] [place] [address] END OF REPORT
--- NOTE | 2018-10-22 15:22 | MORECARE ---
CASE MANAGEMENT DISCHARGE SUMMARY PATIENT: MAGNOLIA BOYKIN II UNIT: [id number] ADM DATE: 10/22/18 AGE: 58 : 62 SEX: M ROOM/BED: D.2315 AUTHOR: ALEXANDRI[place],DOC PHYSICIAN: REFERRING PHYSICIAN: PRIMO NASCIMENTO MD DATE OF SERVICE: 10/22/18 Discharge Plan Patient Name: MAGNOLIA BOYKIN Facility: [facility]:[place] : 1960 Planned Disposition: Home Anticipated Discharge Date: 10/25/18 Discharge Date: Expected LOS: 3 Initial Reviewer: [email or web address] Initial Review Date: 10/22/2018 Generated: 10/22/18 4:22 pm Comments DCP- Discharge Planning Updated by [email or web address]: Kristy Hendrickson on 10/22/18 2:[address] Patient Name: MAGNOLIA BOYKIN Admission Status: ER Accout number: [id number] Admission Date: 10-22-2018 : 1960 Admission Diagnosis: Attending: PRIMO NASCIMENTO Current LOS: 1 Anticipated DC Date: 10-25-2018 Planned Disposition: Home Primary Insurance: MEDICARE A & B Discharge Planning Comments: CM met with patient who was on BIPAP and unable to answer questions. CM called [facility] and spoke to Aggie Allen, patients nurse, who reported the patient is a resident at their facility. She reports that the patient is total dependent in his care at the facility. He is mostly in the bed but able to sit up in the chair. He has to have a lot of encouragement to get out of the bed. He is able to feed himself but requires meal set up. Patient will return to [facility] at time of discharge. CM will continue to follow and will assist as needed with dc plans/needs. Cooling System Operator: Kristy Hendrickson RN, [facility] DCPIA - Discharge Planning Initial Assessment Updated by [email or web address]: Kristy Hendrickson on 10/22/18 3:06 pm * Is the patient Alert and Oriented? Yes * How many steps to enter\exit or inside your home? None * PCP Dr. Morales - [facility] * Pharmacy [facility] - [facility] pharmacy * Preadmission Environment [facility] * Facility Name [facility] * ADLs Total Dependent * List name and contact numbers for known caregivers / representatives who currently or will assist patient after discharge: Abeba Marquez - daughter - [phone] Jean Paul Dee - son in law - [phone] * Verbal permission to speak to the caregivers and representatives has been obtained from the patient. N/A * Additional services required to return to the preadmission environment? No * Can the patient safely return to the preadmission environment? Yes * Has this patient been hospitalized within the prior 30 days at any hospital? No Last DP export: 10/22/18 2:13 pm Patient Name: MAGNOLIA BOYKIN Page 54075 at 1522 All edits/amendments must be made on the electronic document DICTATION DATE: 10/22/181520 INTERPRETER TRANSLATOR: ROYER 10/22/18 152 RPT#: [id number] DC DATE: STATUS: ADM IN [facility] [address] [place] [address] END OF REPORT
--- NOTE | 2018-10-22 16:20 | NUR ---
PT SLEEPING COMFORTABLY REPOSITIONED ON L SIDE DENIES NEEDS WILL CONTINUE TO MONITOR
--- NOTE | 2018-10-22 17:37 | NUR ---
ULTRASOUND AT BEDSIDE.
[2018-10-23] VITALS (25 sets, daily range): BP systolic 97–149; BP diastolic 53–93
[2018-10-23 04:43] LABS: BASOPHILS 0 % (0-2); EOSINOPHILS 0 % (0-7); HEMATOCRIT 37.3 % (42.0-54.0); HEMOGLOBIN 10.7 g/dL (13.5-17.5); IMMATURE GRANULOCYTES 0.3 % (0-5); LYMPHOCYTES 5.3 % (15-50); MCH 18.2 pg (26.0-34.0); MCHC 28.7 g/dL (31.0-37.0); MCV 63.5 fL (80.0-100.0); MEAN PLATELET VOLUME 9.1 fL (7.4-10.4); MONOCYTES 0.6 % (2-11); NEUTROPHILS 93.8 % (40-80); PLATELET COUNT 224 10x3/uL (130-400); RBC 5.87 10x6/uL (4.20-6.10); RDW 19.3 % (11.5-14.5); WBC 6.8 10x3/uL (4.8-10.8)
[2018-10-23 05:19] LABS: ALBUMIN 3.2 g/dL (3.4-5.0); ALKALINE PHOSPHATASE 93 U/L (46-116); ALT (SGPT) 47 U/L (10-68); BILIRUBIN - TOTAL 0.43 mg/dL (0.2-1.3); CALC OSMOLALITY 271 mosm/kg (275-300); CALCIUM 8.5 mg/dL (8.5-10.1); CARBON DIOXIDE 31.2 mmol/L (21.0-32.0); CHLORIDE - SERUM 98 mmol/L (98-107); CREATININE - SERUM 0.8 mg/dL (0.6-1.3); GLUCOSE 125 mg/dL (74-106); POTASSIUM - SERUM 4.7 mmol/L (3.5-5.1); PROTEIN - SERUM 7.1 g/dL (6.4-8.2); SODIUM 136 mmol/L (136-145); UREA NITROGEN 10 mg/dL (7-18); eGFR NON AFRICAN AMERICAN > 90 mL/min (90-120)
--- NOTE | 2018-10-23 07:00 | NUR ---
RECIEVED BEDSIDE REPORT ON PATIENT AND ASSUMED CARE. HEAD TO TOE ASSESSMENT COMPLETED. VSS. IV 20 GA TO LEFT WRIST, SALINE LOCKED. FLUSHES EASILY AND POSTIVE BLOOD RETURN NOTED. CM - SR RATE OF 92, BBS DIMINISHED BUT CLEAR, ON O2 VIA NC AT 2 LPM WITH SPO2 - 92%. ALERT AND ORIENTED X 4, WATCHING TV.
--- NOTE | 2018-10-23 08:10 | NUR ---
PATIENT INCONTINENT OF BM, LARGE SOFT BROWN, GIVEN COMPLETE BATH AND LINEN CHANGED, REPOSITIONED IN BED AND GIVEN BREAKFAST TRAY.
[2018-10-23 08:17] LABS: FOLATE (FOLIC ACID) - SERUM >20.0 ng/mL (>3.0)
--- NOTE | 2018-10-23 08:57 | NUR ---
PATIENT ATE 100% OF BREAKFAST. GIVEN MORNING MEDS PER MAR, VSS. TURNED AND REPOSITIONED IN BED.
--- NOTE | 2018-10-23 10:44 | NUR ---
PATIENT INCONTINENT OF LARGE SOFT BROWN STOOL, CLEANED AND REPOSITIONED IN BED. STOOL SAMPLE COLLECTED AND SENT TO LAB PER ORDER.
--- NOTE | 2018-10-23 11:00 | NUR ---
PATIENT REASSESSMENT COMPLETE, VSS. TURNED AND REPOSITIONED IN BED. MEDS GIVEN PER MAR.
--- NOTE | 2018-10-23 12:32 | NUR ---
PATIENT ALERT AND ORIENTED, WATCHING TV. VSS. VANCOMYCIN GIVEN PER OCT. LUNCH TRAY PROVIDE. DR. NASCIMENTO AT ROOM UDPATED AND EXAMINES PATIENT. PATIENT DISCUSSED WITH DR. NASCIMENTO RESTARTING HOME MEDS.
--- NOTE | 2018-10-23 14:53 | NUR ---
REASSESSMENT COMPLETE. PATIENT INCONTINENT LARGE BROWN SOFT STOOL. CLEANED, TURNED AND REPOSITIONED IN BED. VSS. WILL CONTINUE TO MONITOR.
--- NOTE | 2018-10-23 15:27 | NUR ---
PATIENT INCONTINENT SMALL BROWN SOFT STOOL, CLEANED AND REPOSTIONED IN BED. VSS. WILL CONTINUE TO MONITOR.
--- NOTE | 2018-10-23 16:57 | NUR ---
PATIENT REPOSISTIONED IN BED, GIVEN DINNER TRAY. VSS. DAUGHTER AT BEDSIDE.
--- NOTE | 2018-10-23 18:25 | NUR ---
PATIENT C/O PAIN TO LEGS 10 GIVEN PRN PERCOCET PER MAR. REPOSTIONED IN BED. VSS.
[2018-10-24] VITALS (13 sets, daily range): BP systolic 110–156; BP diastolic 53–95
[2018-10-24 04:59] LABS: BASOPHILS 0 % (0-2); EOSINOPHILS 0 % (0-7); HEMATOCRIT 33.8 % (42.0-54.0); HEMOGLOBIN 9.8 g/dL (13.5-17.5); IMMATURE GRANULOCYTES 0.2 % (0-5); LYMPHOCYTES 5.4 % (15-50); MCV 62.4 fL (80.0-100.0); MEAN PLATELET VOLUME 9.1 fL (7.4-10.4); MONOCYTES 3.9 % (2-11); NEUTROPHILS 90.5 % (40-80); PLATELET COUNT 234 10x3/uL (130-400); RBC 5.42 10x6/uL (4.20-6.10); RDW 19.3 % (11.5-14.5)
[2018-10-24 05:18] LABS: MCH 18.1 pg (26.0-34.0); WBC 9.6 10x3/uL (4.8-10.8)
[2018-10-24 05:44] LABS: ALKALINE PHOSPHATASE 77 U/L (46-116); BILIRUBIN - TOTAL 0.41 mg/dL (0.2-1.3); CALCIUM 8.4 mg/dL (8.5-10.1); CARBON DIOXIDE 27.8 mmol/L (21.0-32.0); CHLORIDE - SERUM 100 mmol/L (98-107); CREATININE - SERUM 0.7 mg/dL (0.6-1.3); GLUCOSE 140 mg/dL (74-106); POTASSIUM - SERUM 4.1 mmol/L (3.5-5.1); PROTEIN - SERUM 6.4 g/dL (6.4-8.2); SODIUM 132 mmol/L (136-145); eGFR NON AFRICAN AMERICAN > 90 mL/min (90-120)
[2018-10-24 05:49] LABS: ALT (SGPT) 34 U/L (10-68); CALC OSMOLALITY 266 mosm/kg (275-300); UREA NITROGEN 13 mg/dL (7-18)
--- NOTE | 2018-10-24 14:05 | NUR ---
RECEIVED PATIENT TO UNIT FROM ICU, IV TO RIGHT FOREARM PATENT, VANCOMYCIN INFUSING, OLD SL TO LEFT ARM REMOVED AND PRESSURE DRESSING APPLIED. PATIENT ALERT AND ORIENTED, DENIES PAIN/NEEDS, ORIENTED TO ROOM, CALL LIGHT AT HAND, INSTRUCTED TO CALL WITH NEEDS.
--- NOTE | 2018-10-24 18:09 | NUR ---
PT RECEIVED TO ROOM ON O2 4 LITERS N/C. ORIENTED TO ROOM WITH NO COMPLAINTS NOTED
--- NOTE | 2018-10-24 19:45 | NUR ---
PT LYING IN BED RESTING, NO SIGNS OF DISTRESS. STATES PAIN 8/10 IN LEGS. GAVE PERCOCET ORDERED. IV RIGHT ARM SL, NO REDNESS OR SWELLING AT INSERTION SITE. DRESSING CDI. O2 4L/NC. DROPLET PRECAUTIONS IN PLACE. CAMACHO NOTED. NO OTHER NEEDS OR COMPLAINTS AT THIS TIME. CL IN REACH
[2018-10-25 00:11] VITALS: BP 128/64
[2018-10-25 04:36] VITALS: BP 121/71
--- NOTE | 2018-10-25 07:15 | NUR ---
MORNING ASSESSMENT COMPLETE. SEE ASSESSMENT FLPIPPA FOR FURTHER DETAILS. PT LYING IN BED AAO X4 TO PERSON, PLACE, TIME, AND SITUATION. DENIES NEEDS AT THIS TIME. GOING FOR EGD TODAY. CL IN REACH. SIDE RAILS UP X3 FOR PATIENT SAFETY
[2018-10-25 07:58] VITALS: BP 161/86
--- NOTE | 2018-10-25 10:41 | NUR ---
FAMILY AT BEDSIDE. REMINDED HER SHE NEEDED A GOWN, GLOVES, AND MASK ON AND SHE STATED SHE KNEW. ENCOURAGED TO WEAR. CALL LIGHT AT BEDSIDE
[2018-10-25 12:22] VITALS: BP 108/68
[2018-10-25 14:39] LABS: HEMATOCRIT 33.6 % (42.0-54.0); MCH 18.5 pg (26.0-34.0); MCHC 29.8 g/dL (31.0-37.0); MCV 62.2 fL (80.0-100.0); MEAN PLATELET VOLUME 8.8 fL (7.4-10.4); PLATELET COUNT 242 10x3/uL (130-400); RDW 19.9 % (11.5-14.5); WBC 9.8 10x3/uL (4.8-10.8)
[2018-10-25 15:07] LABS: LYMPHOCYTES 15 % (15-50); NEUTROPHILS 85 % (40-80)
[2018-10-25 15:08] LABS: PLATELET ESTIMATE NORMAL
--- NOTE | 2018-10-25 15:59 | NUR ---
PT PIV INFILTRATED. RESITED TO R INNER FA- 20 G- PT TOLERATED WELL. PIC FLUSES GREAT.
[2018-10-25 16:00] VITALS: BP 131/104
[2018-10-25 16:59] LABS: ALBUMIN 3.3 g/dL (3.4-5.0); ALKALINE PHOSPHATASE 77 U/L (46-116); ALT (SGPT) 36 U/L (10-68); CALC OSMOLALITY 279 mosm/kg (275-300); CALCIUM 8.4 mg/dL (8.5-10.1); CARBON DIOXIDE 24.4 mmol/L (21.0-32.0); CHLORIDE - SERUM 102 mmol/L (98-107); GLUCOSE 105 mg/dL (74-106); POTASSIUM - SERUM 3.7 mmol/L (3.5-5.1); PROTEIN - SERUM 6.3 g/dL (6.4-8.2); SODIUM 141 mmol/L (136-145); UREA NITROGEN 11 mg/dL (7-18)
[2018-10-25 17:01] LABS: CREATININE - SERUM 0.9 mg/dL (0.6-1.3); eGFR NON AFRICAN AMERICAN > 90 mL/min (90-120)
[2018-10-25 22:13] VITALS: BP 140/68
[2018-10-26 04:56] LABS: BASOPHILS 0 % (0-2); EOSINOPHILS 0 % (0-7); HEMATOCRIT 35.6 % (42.0-54.0); HEMOGLOBIN 10.5 g/dL (13.5-17.5); IMMATURE GRANULOCYTES 0.6 % (0-5); MCHC 29.5 g/dL (31.0-37.0); MCV 62.1 fL (80.0-100.0); MEAN PLATELET VOLUME 8.9 fL (7.4-10.4); MONOCYTES 5.3 % (2-11); NEUTROPHILS 86.1 % (40-80); PLATELET COUNT 243 10x3/uL (130-400); RBC 5.73 10x6/uL (4.20-6.10); RDW 19.8 % (11.5-14.5); WBC 8.5 10x3/uL (4.8-10.8)
[2018-10-26 04:57] LABS: MCH 18.3 pg (26.0-34.0)
[2018-10-26 05:13] LABS: ALBUMIN 3.3 g/dL (3.4-5.0); ALKALINE PHOSPHATASE 78 U/L (46-116); ALT (SGPT) 38 U/L (10-68); CALC OSMOLALITY 278 mosm/kg (275-300); CALCIUM 8.6 mg/dL (8.5-10.1); CARBON DIOXIDE 27.3 mmol/L (21.0-32.0); CHLORIDE - SERUM 100 mmol/L (98-107); CREATININE - SERUM 0.8 mg/dL (0.6-1.3); GLUCOSE 124 mg/dL (74-106); POTASSIUM - SERUM 3.9 mmol/L (3.5-5.1); PROTEIN - SERUM 6.8 g/dL (6.4-8.2); SODIUM 139 mmol/L (136-145); T4 THYROXIN - FREE 1.28 ng/dL (0.76-1.46); UREA NITROGEN 12 mg/dL (7-18); eGFR NON AFRICAN AMERICAN > 90 mL/min (90-120)
[2018-10-26 05:18] VITALS: BP 153/90
--- NOTE | 2018-10-26 07:45 | NUR ---
MORNING ASSESSMENT COMPLETE. SEE ASSESSMENT FLOWSHEET FOR FURTHER DETAILS. PT LYING IN BED AAO X4 TO PERSON, PLACE, TIME, AND SITUATION. DENIES NEEDS AT THIS TIME. CL IN REACH. SIDE RAILS UP X3 FOR PATIENT SAEFTY.
[2018-10-26 09:17] VITALS: BP 134/82
[2018-10-26 12:45] VITALS: BP 111/64
[2018-10-26 17:17] VITALS: BP 96/60
[2018-10-27] VITALS (7 sets, daily range): BP systolic 98–156; BP diastolic 60–87
[2018-10-27 06:20] LABS: ALBUMIN 3.4 g/dL (3.4-5.0); ALKALINE PHOSPHATASE 77 U/L (46-116); ALT (SGPT) 41 U/L (10-68); BILIRUBIN - TOTAL 0.46 mg/dL (0.2-1.3); CALC OSMOLALITY 281 mosm/kg (275-300); CALCIUM 8.7 mg/dL (8.5-10.1); CARBON DIOXIDE 28.6 mmol/L (21.0-32.0); CHLORIDE - SERUM 103 mmol/L (98-107); CREATININE - SERUM 0.9 mg/dL (0.6-1.3); GLUCOSE 122 mg/dL (74-106); PROTEIN - SERUM 6.9 g/dL (6.4-8.2); SODIUM 141 mmol/L (136-145); UREA NITROGEN 13 mg/dL (7-18); VANCOMYCIN - TROUGH 20.7 ug/mL (10.0-20.0); eGFR NON AFRICAN AMERICAN > 90 mL/min (90-120)
[2018-10-27 08:15] LABS: BASOPHILS 0.1 % (0-2); EOSINOPHILS 0 % (0-7); HEMATOCRIT 36.7 % (42.0-54.0); HEMOGLOBIN 10.8 g/dL (13.5-17.5); IMMATURE GRANULOCYTES 0.7 % (0-5); LYMPHOCYTES 8.4 % (15-50); MCHC 29.4 g/dL (31.0-37.0); MCV 62.1 fL (80.0-100.0); MEAN PLATELET VOLUME 9.6 fL (7.4-10.4); MONOCYTES 5.7 % (2-11); NEUTROPHILS 85.1 % (40-80); PLATELET COUNT 282 10x3/uL (130-400); RBC 5.91 10x6/uL (4.20-6.10); RDW 19.9 % (11.5-14.5)
[2018-10-27 08:16] LABS: MCH 18.3 pg (26.0-34.0); WBC 10.9 10x3/uL (4.8-10.8)
--- NOTE | 2018-10-27 18:30 | NUR ---
PT RESTING IN BED WATCHING TV. NO S/S OF ACUTE DISTRESS. CL IN PLACE.
--- NOTE | 2018-10-27 20:00 | NUR ---
RESTING IN BED RESP UNLABORED O2 IN USE, CAMACHO CATH TO BEDSIDE DRAINAGE, EDEMA NOTED TO LOWER EXTREMITIES, CALL HNERIQUE EPSTEIN
[2018-10-28] VITALS: BP 120/76
[2018-10-28 05:23] LABS: ALKALINE PHOSPHATASE 79 U/L (46-116); ALT (SGPT) 31 U/L (10-68); BILIRUBIN - TOTAL 0.43 mg/dL (0.2-1.3); CALC OSMOLALITY 286 mosm/kg (275-300); CALCIUM 8.5 mg/dL (8.5-10.1); CHLORIDE - SERUM 106 mmol/L (98-107); CREATININE - SERUM 0.9 mg/dL (0.6-1.3); GLUCOSE 127 mg/dL (74-106); PROTEIN - SERUM 6.5 g/dL (6.4-8.2); SODIUM 143 mmol/L (136-145); UREA NITROGEN 12 mg/dL (7-18); eGFR NON AFRICAN AMERICAN > 90 mL/min (90-120)
[2018-10-28 05:26] LABS: BASOPHILS 0.1 % (0-2); EOSINOPHILS 0 % (0-7); HEMATOCRIT 35.2 % (42.0-54.0); HEMOGLOBIN 10.3 g/dL (13.5-17.5); IMMATURE GRANULOCYTES 1.1 % (0-5); LYMPHOCYTES 11.1 % (15-50); MCHC 29.3 g/dL (31.0-37.0); MCV 62.1 fL (80.0-100.0); MEAN PLATELET VOLUME 9.1 fL (7.4-10.4); NEUTROPHILS 80.7 % (40-80); PLATELET COUNT 268 10x3/uL (130-400); RBC 5.67 10x6/uL (4.20-6.10); RDW 19.8 % (11.5-14.5); WBC 12.4 10x3/uL (4.8-10.8)
[2018-10-28 05:27] LABS: POTASSIUM - SERUM 4.8 mmol/L (3.5-5.1)
[2018-10-28 05:30] LABS: MCH 18.2 pg (26.0-34.0)
[2018-10-28 07:30] LABS: SPE - A/G RATIO 1.1 (0.7-1.7); SPE - ALBUMIN 3.4 g/dL (2.9-4.4); SPE - ALPHA-1 GLOBULIN 0.3 g/dL (0.0-0.4); SPE - ALPHA-2 GLOBULIN 0.8 g/dL (0.4-1.0); SPE - GAMMA GLOBULIN 0.9 g/dL (0.4-1.8); SPE - M-SPIKE Not Observed g/dL (Not Observed); SPE - TOTAL PROTEIN 6.5 g/dL (6.0-8.5)
[2018-10-28 09:36] VITALS: BP 123/79
[2018-10-28 10:57] VITALS: Ht 188 cm; Wt 131.1 kg
[2018-10-28 13:01] VITALS: BP 126/85
--- NOTE | 2018-10-28 15:11 | NUR ---
RESITED PIV TO R FA. FLUSHES WELL. PT TOLERATED WELL.
[2018-10-28 17:31] VITALS: BP 123/92
[2018-10-28 20:00] VITALS: BP 133/79
[2018-10-29 04:00] VITALS: BP 123/83
[2018-10-29 04:50] LABS: ALBUMIN 3.1 g/dL (3.4-5.0); ALKALINE PHOSPHATASE 73 U/L (46-116); ALT (SGPT) 32 U/L (10-68); BILIRUBIN - TOTAL 0.31 mg/dL (0.2-1.3); CALC OSMOLALITY 278 mosm/kg (275-300); CALCIUM 8.2 mg/dL (8.5-10.1); CARBON DIOXIDE 26.9 mmol/L (21.0-32.0); CHLORIDE - SERUM 102 mmol/L (98-107); CREATININE - SERUM 0.8 mg/dL (0.6-1.3); GLUCOSE 90 mg/dL (74-106); PROTEIN - SERUM 6.2 g/dL (6.4-8.2); SODIUM 140 mmol/L (136-145); UREA NITROGEN 12 mg/dL (7-18); eGFR NON AFRICAN AMERICAN > 90 mL/min (90-120)
[2018-10-29 04:56] LABS: BASOPHILS 0.1 % (0-2); EOSINOPHILS 0.7 % (0-7); HEMATOCRIT 34.5 % (42.0-54.0); HEMOGLOBIN 10.3 g/dL (13.5-17.5); IMMATURE GRANULOCYTES 1.2 % (0-5); LYMPHOCYTES 17.3 % (15-50); MCHC 29.9 g/dL (31.0-37.0); MEAN PLATELET VOLUME 8.9 fL (7.4-10.4); MONOCYTES 8.8 % (2-11); NEUTROPHILS 71.9 % (40-80); PLATELET COUNT 260 10x3/uL (130-400); RBC 5.66 10x6/uL (4.20-6.10); RDW 19.4 % (11.5-14.5); WBC 13.7 10x3/uL (4.8-10.8)
[2018-10-29 04:58] LABS: MCH 18.2 pg (26.0-34.0)
[2018-10-29 05:03] LABS: POTASSIUM - SERUM 3.2 mmol/L (3.5-5.1)
[2018-10-29 08:45] VITALS: BP 159/77
[2018-10-29 12:59] VITALS: BP 131/88
[2018-10-29 17:45] VITALS: BP 121/70
[2018-10-29 20:00] VITALS: BP 115/66
[2018-10-30 03:00] VITALS: BP 168/59
[2018-10-30 06:51] LABS: BASOPHILS 0 % (0-2); EOSINOPHILS 0.9 % (0-7); HEMATOCRIT 34.9 % (42.0-54.0); HEMOGLOBIN 10.3 g/dL (13.5-17.5); IMMATURE GRANULOCYTES 0.9 % (0-5); LYMPHOCYTES 19.1 % (15-50); MCHC 29.5 g/dL (31.0-37.0); MCV 61.6 fL (80.0-100.0); MEAN PLATELET VOLUME 9.5 fL (7.4-10.4); MONOCYTES 7.1 % (2-11); PLATELET COUNT 243 10x3/uL (130-400); RBC 5.67 10x6/uL (4.20-6.10); RDW 19.8 % (11.5-14.5); WBC 11.9 10x3/uL (4.8-10.8)
[2018-10-30 06:52] LABS: MCH 18.2 pg (26.0-34.0)
[2018-10-30 06:55] LABS: ALBUMIN 3.1 g/dL (3.4-5.0); ALKALINE PHOSPHATASE 70 U/L (46-116); ALT (SGPT) 33 U/L (10-68); BILIRUBIN - TOTAL 0.34 mg/dL (0.2-1.3); CALC OSMOLALITY 281 mosm/kg (275-300); CALCIUM 8.2 mg/dL (8.5-10.1); CARBON DIOXIDE 29.4 mmol/L (21.0-32.0); CHLORIDE - SERUM 104 mmol/L (98-107); CREATININE - SERUM 0.7 mg/dL (0.6-1.3); GLUCOSE 83 mg/dL (74-106); POTASSIUM - SERUM 3.6 mmol/L (3.5-5.1); PROTEIN - SERUM 6.2 g/dL (6.4-8.2); SODIUM 143 mmol/L (136-145); eGFR NON AFRICAN AMERICAN > 90 mL/min (90-120)
[2018-10-30 06:57] LABS: UREA NITROGEN 8 mg/dL (7-18)
--- NOTE | 2018-10-30 08:39 | NUR ---
PT ALERT X 4. BREATH SOUNDS CLEAR BILAT, 3L O2 PER NC. BOWEL SOUNDS HYPOACTIVE. IV TO RIGHT FOREARM, PATENT, DRESSING CLEAN DRY AND INTACT. +3 EDEMA TO LOWER EXTREMITIES. PT REPORTING PAIN OF 8/10, MEDICATED PER ORDERS, WILL MONITOR. BED LOW, CALL LIGHT IN REACH. NO OTHER NEEDS AT THIS TIME.
[2018-10-30 13:40] VITALS: BP 127/81
[2018-10-30 16:59] VITALS: BP 118/63
--- NOTE | 2018-10-30 19:15 | NUR ---
RECEIVED CARE FROM DAY NURSE. LYING IN BED WATCHING TV. REPORTS NO NEEDS AT THIS TIME. CALL LIGHT AT SIDE. IV INFUSING PER ORDER TO RIGHT FA. CAMACHO TO GRAVITY.
[2018-10-30 20:36] VITALS: BP 98/62
[2018-10-31 04:20] VITALS: BP 123/66
--- NOTE | 2018-10-31 05:05 | NUR ---
I have reviewed this patient and I concur with the Shift Assessment completed by the Licensed Practical Nurse today this shift.
--- NOTE | 2018-10-31 08:12 | NUR ---
PT ALERT X 4. BREATH SOUNDS CLEAR BILAT, 2.5L O2 PER NC. IV TO RIGHT FOREARM, PATENT, DRESSING CLEAN DRY AND INTACT. +3 EDEMA TO BLE. PT REPORTING PAIN OF 7/10, INCREASING WHEN HAVING SPASMS. BED LOW, CALL LIGHT IN REACH. NO OTHER NEEDS AT THIS TIME.
[2018-10-31 08:59] VITALS: BP 119/72
[2018-10-31] MEDS ORDERED: TAMIFLU75 MG PO (10:58)
[2018-10-31] MEDS ORDERED: PROZAC10 MG PO (11:00)
[2018-10-31] MEDS ORDERED: FLORAJEN3 CAPS460 MG PO (11:02)
[2018-10-31] MEDS ORDERED: PROTONIX40 MG PO (11:02)
[2018-10-31 13:09] VITALS: BP 113/77
--- NOTE | 2018-10-31 14:07 | NUR ---
DISCHARGE PAPERWORK SIGNED, ALL QUESTIONS ANSWERED. IV TO RIGHT FOREARM DC'D, TIP INTACT. SENT OUT BY EMS.
--- NOTE | 2018-11-01 14:54 | MORECARE ---
CASE MANAGEMENT DISCHARGE SUMMARY PATIENT: MAGNOLIA BOYKIN II UNIT: [id number] ADM DATE: 10/22/18 AGE: 58 : 62 SEX: M ROOM/BED: D.2206 AUTHOR: ALEXANDRIA,DOC PHYSICIAN: REFERRING PHYSICIAN: QUENTIN MORALES MD DATE OF SERVICE: 11/01/18 Discharge Plan Patient Name: MAGNOLIA BOYKIN Facility: [facility]:[place] : 1960 Planned Disposition: Home Anticipated Discharge Date: 10/25/18 Discharge Date: 10/31/2018 Expected LOS: 3 Initial Reviewer: [email or web address] Initial Review Date: 10/22/2018 Generated: 11/01/18 3:54 pm Comments DCP- Discharge Planning Updated by [email or web address]: Kristy Hendrickson on 10/22/18 1:[address] Patient Name: MAGNOLIA BOYKIN Admission Status: ER Accout number: [id number] Admission Date: 10-22-2018 : 1960 Admission Diagnosis: Attending: PRIMO NASCIMENTO Current LOS: 1 Anticipated DC Date: 10-25-2018 Planned Disposition: Home Primary Insurance: MEDICARE A & B Discharge Planning Comments: CM met with patient who was on BIPAP and unable to answer questions. CM called senior care and spoke to Aggie Allen, [facility] nurse, who reported the patient is a resident at their facility. She reports that the patient is total dependent in his care at the facility. He is mostly in the bed but able to sit up in the chair. He has to have a lot of encouragement to get out of the bed. He is able to feed himself but requires meal set up. Patient will return to [facility] at time of discharge. CM will continue to follow and will assist as needed with dc plans/needs. Regulatory Submissions Specialist: Kristy Hendrickson RN, [facility] [place] DCPIA - Discharge Planning Initial Assessment Updated by [email or web address]: Kristy Hendrickson on 10/22/18 3:06 pm * Is the patient Alert and Oriented? Yes * How many steps to enter\exit or inside your home? None * PCP Dr. Morales - senior care * Pharmacy [facility] * Preadmission Environment [facility] * Facility Name [facility] * ADLs Total Dependent * List name and contact numbers for known caregivers / representatives who currently or will assist patient after discharge: Abeba Marquez - daughter - [phone] Jean Paul Dee - son in law - [phone] * Verbal permission to speak to the caregivers and representatives has been obtained from the patient. N/A * Additional services required to return to the preadmission environment? No * Can the patient safely return to the preadmission environment? Yes * Has this patient been hospitalized within the prior 30 days at any hospital? No Last DP export: 10/22/18 1:22 pm Patient Name: MAGNOLIA BOYKIN Page [id number] at 1454 All edits/amendments must be made on the electronic document DICTATION DATE: 11/01/181452 FIRE LOOKOUT: ROYER 11/01/181452 RPT#: [id number] DC DATE:10/31/18 STATUS: DIS IN [facility] [address] [place] [address] END OF REPORT
--- NOTE | 2018-11-01 18:35 | MORECARE ---
CASE MANAGEMENT DISCHARGE SUMMARY PATIENT: MAGNOLIA BOYKIN II UNIT: [id number] ADM DATE: 10/22/18 AGE: 58 : 62 SEX: M ROOM/BED: D.2206 AUTHOR: ALEXANDRIA,DOC PHYSICIAN: REFERRING PHYSICIAN: QUENTIN MORALES MD DATE OF SERVICE: 11/01/18 Discharge Plan Patient Name: MAGNOLIA BOYKIN Facility: [facility]:[place] : 1960 Planned Disposition: Home Anticipated Discharge Date: 10/25/18 Discharge Date: 10/31/2018 Expected LOS: 3 Initial Reviewer: [email or web address] Initial Review Date: 10/22/2018 Generated: 11/01/18 7:35 pm Comments DCP- Discharge Planning Updated by [email or web address]: Janeth Ocasio on 11/01/18 5:[address] LATE ENTRY PATIENT WAS DISCHARGED TO A SKILLED BED AT [facility]. DISCHARGE SUMMARY AND D/C MED LIST FAXED TO FACILITY AT [phone]. SPOKE W/ KRISTIAN. VERIFIED TYPE OF BED PATIENT WAS DISCHARGED INTO WITH STEVEN AT [facility] TODAY 11/01/18. DCP- Discharge Planning Updated by [email or web address]: Kristy Hendrickson on 10/22/18 1:[address] Patient Name: MAGNOLIA BOYKIN Admission Status: ER Accout number: [id number] Admission Date: 10-22-2018 : 1960 Admission Diagnosis: Attending: PIRMO NASCIMENTO Current LOS: 1 Anticipated DC Date: 10-25-2018 Planned Disposition: Home Primary Insurance: MEDICARE A & B Discharge Planning Comments: CM met with patient who was on BIPAP and unable to answer questions. CM called care home and spoke to Aggie Allen, patients nurse, who reported the patient is a resident at their facility. She reports that the patient is total dependent in his care at the facility. He is mostly in the bed but able to sit up in the chair. He has to have a lot of encouragement to get out of the bed. He is able to feed himself but requires meal set up. Patient will return to [facility] at time of discharge. CM will continue to follow and will assist as needed with dc plans/needs. Tour Leader: Kristy Hendrickson RN, [facility] DCPIA - Discharge Planning Initial Assessment Updated by [email or web address]: Kristy Hendrickson on 10/22/18 3:06 pm * Is the patient Alert and Oriented? Yes * How many steps to enter\exit or inside your home? None * PCP Dr. Morales - care home * Pharmacy [facility] - care home pharmacy * Preadmission Environment [facility] * Facility Name [facility] * ADLs Total Dependent * List name and contact numbers for known caregivers / representatives who currently or will assist patient after discharge: Abeba Marquez - daughter - [phone] Jean Paul Dee - son in law - [phone] * Verbal permission to speak to the caregivers and representatives has been obtained from the patient. N/A * Additional services required to return to the preadmission environment? No * Can the patient safely return to the preadmission environment? Yes * Has this patient been hospitalized within the prior 30 days at any hospital? No Last DP export: 11/01/18 1:54 p Patient Name: MAGNOLIA BOYKIN Page [id number] at 1835 All edits/amendments must be made on the electronic document DICTATION DATE: 11/01/181834 CHAUFFEUR MOTORBUS: ROYER 11/01/181834 RPT#: [id number] DC DATE:10/31/18 STATUS: DIS IN [place] [id number] [place] [address] END OF REPORT
== END 2018-10-31 14:08 | DRG 193 ==
LOC: D.ER 07:23 → D.ICU 11:15 → D.MS 11:15 → D.M3 10-24 14:15 → D.MS 10-24 17:47
PROVIDERS: Emergency Medicine; Family Medicine; Internal Medicine Gastroenterology; Internal Medicine Nephrology; Internal Medicine Pulmonary Disease; ADMIT Family Medicine; ATTEND Family Medicine
PROC: 0DD58ZX Extraction of Esophagus, Via Natural or Artificial Opening Endoscopic, Diagnostic (ICD-10-PCS; principal; 2018-10-25 16:00)
DX: J09.X1 Influenza due to identified novel influenza A virus with pneumonia (principal); J96.21 Acute and chronic respiratory failure with hypoxia; R29.5 Transient paralysis; G82.20 Paraplegia, unspecified; E87.1 Hypo-osmolality and hyponatremia; J44.1 Chronic obstructive pulmonary disease with (acute) exacerbation; I69.334 Monoplegia of upper limb following cerebral infarction affecting left non-dominant side; G62.9 Polyneuropathy, unspecified; S34.129 Incomplete lesion of unspecified level of lumbar spinal cord; I10 Essential (primary) hypertension; E66.01 Morbid (severe) obesity due to excess calories; Z68.36 Body mass index [BMI] 36.0-36.9, adult; D64.9 Anemia, unspecified; T14.8XXS Other injury of unspecified body region, sequela; K22.70 Barrett's esophagus without dysplasia; K44.9 Diaphragmatic hernia without obstruction or gangrene